=== PATIENT | female | born 1990 | race Caucasian/White ===

== ENCOUNTER → 2017-10-10 10:04 | Outpatient (CLI) | payer MEDICAID, SELFPAY ==
[2017-10-10 13:07] LABS: Absolute Neutrophil Count 6.3 X10^3/uL (2.0-7.7); Basophil# 0.04 X10^3/uL; Basophil% 0.4 % (0-1); Eosinophil# 0.31 X10^3/uL; Eosinophils% 3.4 % (0-5); Hematocrit 39.5 % (37-47); Hemoglobin 13.1 g/dl (12.0-15.0); Lymphocyte % 20.8 % (19-41); Mean Corp Hgb Conc 33.2 g/gl (32-36); Mean Corpuscular Hgb 30.9 pg (27.0-32.0); Mean Corpuscular Volume 93.2 fL (81-99); Mean Platelet Vol. 10.9 fl (6.2-12.0); Monocyte# 0.54 X10^3/uL; Monocyte% 5.9 % (0-10); Neutrophil # 6.32 X10^3/uL (2.7-7.7); Neutrophil % 69.3 % (47-70); Platelet Count 278 K/mm3 (150-450); RBC Distribution Width CV 13.8 % (11.6-14.6); Red Blood Count 4.24 M/mm3 (4.2-5.4); White Blood Count 9.1 K/mm3 (4.4-11.0)
[2017-10-10 13:11] LABS: POSITIVE COUNT NO; POSITIVE DIFFERENTIAL NO; POSITIVE MORPHOLOGY NO
[2017-10-10 13:37] LABS: Rubella IgG 145.2 IU/mL
[2017-10-11 04:08] LABS: HIV 1/0/2 SCREEN 4TH GEN Non Reactive (Non Reactive)
[2017-10-11 12:45] LABS: HEPATITIS B SURFACE AG Negative (Negative)
[2017-10-12 03:11] LABS: Rapid Plasmin Reagin (RPR) NONREACTIVE (NONREACTIVE)
== END ==
PROVIDERS: Visit Provider Obstetrics & Gynecology
DX: O09.92 Supervision of high risk pregnancy, unspecified, second trimester (principal); Z3A.00 Weeks of gestation of pregnancy not specified
CPT/HCPCS: 85025; 86592; 86703; 86762; 86850; 86900; 87340

== ENCOUNTER → 2017-10-10 10:26 | Outpatient (CLI) | payer MEDICAID, SELFPAY ==
--- NOTE | 2017-10-10 10:28 | US_ITS ---
STUDY: SECOND AND THIRD TRIMESTER OBSTETRICAL ULTRASOUND - LIMITED REASON FOR EXAM: Female, 27 years old. Routine survey. LMP: January 13, 2017. PRIOR ULTRASOUND: None. TECHNIQUE: Transabdominal and transvaginal ultrasound evaluation was performed. FINDINGS: There is a single intrauterine fetus. The fetus is in a cephalic presentation. There is demonstrated cardiac activity with a heart rate of 149 bpm. There is a normal amniotic fluid volume. The largest amniotic fluid pocket measures 2.3 cm x 2.3 cm. The amniotic fluid index (CELIA) is 6.7 cm. The placenta is fundal in location. There are Grade 3 placental changes. The cervix measures 2.5 cm in length. BIOMETRY: BPD: 8.6 cm: 34 weeks, 5 days HC: 32.0 cm: 36 weeks, 1 days AC: 30.2 cm: 34 weeks, 2 days FL: 6.7 cm: 34 weeks, 4 days Age by LMP: 38 weeks, 4 days. KOKO by LMP: October 20, 2017. age by current US: 35 weeks, 0 days. KOKO by current US: November 14, 2017. Estimated weight: 2454 grams, +/- 358 grams, 2 percentile. Gender: Indeterminant US/OB Limited With Biometrics IMPRESSION: Single live intrauterine gestation with a mean gestational age of 35 weeks. Electronically Signed: Frederic Ray MD at 11:37 EDT Tel [phone], Service support ,
== END ==
PROVIDERS: Visit Provider Obstetrics & Gynecology
DX: O09.93 Supervision of high risk pregnancy, unspecified, third trimester (principal); O09.33 Supervision of pregnancy with insufficient antenatal care, third trimester; Z3A.35 35 weeks gestation of pregnancy
CPT/HCPCS: 76816

== ENCOUNTER 2017-10-10 12:05 | Inpatient (IN) | payer MEDICAID, SELFPAY ==
[2017-10-10] VITALS (11 sets, daily range): BP systolic 74–100; BP diastolic 34–67; PULSE 65–110; RESP 16–20; TEMP 35.8–36.8; O2SAT 96–100; BMI 21.0
--- NOTE | 2017-10-10 12:27 | NURSING ---
pt had very limited care
[2017-10-10] MEDS: Lactated Ringers 1,000 ML 50 ML IV ×2 (12:30→17:36)
[2017-10-10 12:45] LABS: Hematocrit 40.5 % (37-47); Hemoglobin 13.7 g/dl (12.0-15.0); Mean Corp Hgb Conc 33.8 g/gl (32-36); Mean Corpuscular Hgb 31.1 pg (27.0-32.0); Mean Corpuscular Volume 91.8 fL (81-99); Mean Platelet Vol. 10.6 fl (6.2-12.0); Platelet Count 271 K/mm3 (150-450); RBC Distribution Width CV 13.7 % (11.6-14.6); RBC Distribution Width SD 45.1 fl (35.1-43.9); Red Blood Count 4.41 M/mm3 (4.2-5.4); White Blood Count 10.5 K/mm3 (4.4-11.0)
[2017-10-10 12:51] LABS: Scan Indicated on CBC? Y/N NO
[2017-10-10] MEDS: fentaNYL-bupivacaine (epidural) 100 ML BAG EPIDURAL ×2 (13:44→18:04)
[2017-10-10] MEDS: Oxytocin 30 units/NS 500 ml 30 UNITS/500 ML IV.SOLN IV (17:37)
[2017-10-10] MEDS: Amnioinfusion- 0.9% NS 1,000 ML IV.SOLN. INTRA-UTER (19:00)
[2017-10-10] MEDS: Terbutaline 1 MG/ML Vial 0.25 MG SC (19:27)
[2017-10-10] MEDS: Oxytocin 30 units/NS 500 ml 30 UNITS/500 ML IV.SOLN 167 UNITS IV (19:37)
[2017-10-10] MEDS: Lactated Ringers 1,000 ML 100 ML IV (20:00)
--- NOTE | 2017-10-10 20:00 | PLAC_PTH ---
PATIENT: DIONICIO COON ELIOT LOC: WP U#:[id number] AGE/SX: 27/F ROOM: WP010 RE10/10/[address]: Kosta Anne MD : 1990 BED: 1 DIS: 10/14/2017 SPEC #: [id number] RECD: 10/11/17 00:22 STATUS: AUDREY GOLDY #: [id number] ELIZABETH: 10/10/17 20:[address]: Shanell Gagnon DEPT: SURGICAL PATHOLOGY RECD BY: Poncho Frye ENTERED: 10/11/17 08:14 SP TYPE: PLACENTA OTHR DR: No Primary Care Phys Tissues: Placenta, NOS Procedures: Surgery Specimen Level V HEADER OPERATION: Primary section PRE-OP DIAGNOSIS: IUGR TISSUE SUBMITTED: Placenta MICROSCOPIC DIAGNOSIS Placenta: Placental disc - third trimester placenta (287 gm). - Focal area of infarction (1.5 cm in greatest dimension). - Focal area of increased calcification. - Focal chronic villitis of unknown etiology. Membranes - no pathologic diagnosis. See comment. Umbilical cord - three blood vessels and no pathologic diagnosis. SJ:rafiq 10/12/17 COMMENT Focal mild acute deciduitis is noted, significance is not clear. MICROSCOPIC DESCRIPTION Slides are reviewed. GROSS DESCRIPTION SPECIMEN: PLACENTA / CLINICAL INFORMATION: A. Weight: 2.192 kg B. Gestational Age: 38 weeks C. Sex: Male PLACENTAL WEIGHT (POST FIXATION): 287 gm PLACENTAL DIMENSIONS: 15 x 13 x 2.5 cm PLACENTAL SHAPE: Usual ovoid PLACENTAL WEIGHT FOR GESTATIONAL AGE: <10 percentile MEMBRANES - Present A. Insertion: The membranes are inserted 1 cm away from the margin of the placenta suspicious for circumvallate insertion in half the circumference of the placenta. B. Site of rupture from edge: 7 cm from edge of placental disc C. Color of membrane: Pang, mucoidy D. Abnormalities: None UMBILICAL CORD - Present A. Color: Pang-burton B. Insertion: Central C. Length: 22 cm D. Diameter: 0.6 to 1 cm E. Number of vessels: Three F. Abnormalities: A false is also noted. PLACENTAL DISC - Present A. Color of surface: Pang-burton B. surface abnormalities: None C. Maternal cotyledons: Intact with minimal tears D. Attached retro placental clot: No clot E. Cut surface: Dark red and spongy F. Lesions: Sections reveal a pang-white wedge-shaped lesion measuring 1.5 cm in greatest dimension. G. Separate clot: Absent SECTIONS SUBMITTED: 1. Membrane roll 2. Cord, maternal end, insertion of membrane away from margin 3. Cord, end, insertion of membrane away from margin 4. Placental disc, and maternal surfaces, lesion 5. Placental disc, and maternal surfaces 6. Placental disc, and maternal surfaces MELISSA:rafiq 10/11/17 TC:5 CPT: 98733
--- NOTE | 2017-10-10 20:24 | HP.PCM_ITS ---
- Problem List (1) IUGR (intrauterine growth restriction) Status: Acute (2) Late care Status: Acute (3) Encounter for supervision of high risk in third trimester, antepartum Status: Acute Comment: Grav 6/5 KOKO 10/20/17. Spouse: Mio. PC: Roni Yolanda Hurley, History Date of Admission: 10/10/17 Final KOKO: 10/20/17 Gestational age: 38 Weeks and 4 Days History of this : 27 yo @ 38w4d by LMP consistent with 17 week US presents IAL with severe IUGR. She presents for her second appointment today with her previous being at 17w6d and presented with regular ctx and us done showed severe IUGR at the 2nd percentile with an hope of 6.7 cm. She started having some vaginal bleeding but no lof. she admits to marijuana use. she states she hasn't received care due to lack of transportation and lack of childcare. Pertinent Past Medical History: negative PSH: tonsillectomy 3 previous term deliveries uncomplicated last delivery 1 1/2 years ago Allergies No Known Allergies Allergy (Verified 10/10/17 09:41) Current Medications Acetaminophen (Tylenol) 325 - 650 mg PO Q4H PRN PRN PRN Reason: PAIN OR FEVER >100.4F Al Hydroxide/Mg Hydroxide (Mylanta Ii) 15 - 30 ml PO Q4H PRN PRN PRN Reason: INDIGESTION Citric Acid/Sodium Citrate (Bicitra) 30 ml PO UD PRN Naloxone HCl 4 mg/ Dextrose 504 mls @ 0 mls/hr IV PRN PRN; Protocol PRN Reason: TO MAINTAIN RR>10 Lactated Ringer's () 1,000 mls @ 50 mls/hr IV .Q20H JENNY Last Admin: 10/10/17 17:36 Dose: 50 mls/hr Oxytocin/Sodium Chloride () 30 units in 500 mls @ 1 mls/hr IV .Q500H JENNY Last Admin: 10/10/17 17:37 Dose: 1 mls/hr Misoprostol (Cytotec) 25 mcg VAGINAL Q4H JENNY Stop: 10/11/17 09:01 Last Admin: 10/10/17 17:17 Dose: Not Given Nalbuphine HCl (Nubain) 5 mg IV Q3H PRN PRN Reason: ITCHING Stop: 10/11/17 14:54 Nalbuphine HCl (Nubain) 5 - 10 mg IV Q3H PRN PRN PRN Reason: PAIN (4-10/10) Naloxone HCl (Narcan) 0.2 mg IV Q1M PRN PRN Reason: RR<10 AND PT UNRESPONSIVE Stop: 10/11/17 14:54 Ondansetron HCl (Zofran) 4 mg IV Q8H PRN PRN PRN Reason: NAUSEA Promethazine HCl (Phenergan Iv) 6.25 - 12.5 mg IV Q4H PRN PRN; Protocol PRN Reason: IF NAUSEA PERSISTS Sodium Chloride () 5 - 15 ml IV UD JENNY Last Admin: 10/10/17 16:03 Dose: Not Given Alcohol: None Drug Use: marijuana Number of Fetus(es): 1 - 130 moderate variability reactive no decels Review of Systems Constitutional: Denies: Chills, Fever, Weight Change HEENT: Reports: Sinus Congestion, Sinus Drainage. Denies: Head Aches Cardiovascular: Denies: Chest Pain, Palpitations Respiratory: Reports: Cough, Sputum production Gastrointestinal: Reports: Abdominal Pain, Nausea Genitourinary: Denies: Dysuria Gynecological: Reports: Vaginal bleeding. Denies: Vaginal discharge Skin: Reports: Dryness Psychiatric: Denies: Anxiety, Depression Physical Exam General: Alert, Oriented x3, No apparent distress Cardiovascular: Regular rate Lungs: Normal air movement Abdomen: Soft, Non Tender, Gravid Extremities:: No edema Estimated gestational size: Small for gestational age Presentation: Cephalic Cervix Dilation (cm): 4 Station: -1 Effacement (%): 50 Assessment/Plan Active and Suspected Problems (Last Reviewed 10/10/17 @ 09:42 by Carlene Duff) IUGR (intrauterine growth restriction) (Acute) 27 yo @ 38w4d presents IAL with severe IUGR and limited care 1. stat new ob labs ordered due to patient never had drawn and was noncompliant with care. 2. severe IUGR- plan pit augmentation PRN in labor 3. epidural 4. urine tox positive marijuana 5. rapid gbs negative 6. social worker assistant consult
[2017-10-10] MEDS: Cefazolin 2 GM in 0.9% Normal Saline 100 ML IV (20:32)
--- NOTE | 2017-10-10 20:57 | PCM.OPRPT ---
Problem List (1) IUGR (intrauterine growth restriction) Status: Acute (2) Late care Status: Acute (3) Encounter for supervision of high risk in third trimester, antepartum Status: Acute Comment: Grav 4/3 KOKO 10/20/17. Spouse: Mio. PC: Xavi Tamayo Dysen, (4) heart rate decelerations affecting management of mother Status: Acute Report of Operation Date of Procedure: 10/10/17 Pre-Operative Diagnosis: ial iugr with category II tracing with decels remote from delivery Post-Operative Diagnosis: same Surgery/Procedure Performed:: primary low transverse section supervisor microfilm duplicating unit: Germaine Kamara supervisor microfilm duplicating unit: Yokasta Serna Type of Anesthesia:: Epidural Special Medications: aniyah, pitocin Specimen's removed: male vertex presentation apgars 9 and 9 Drains: gillis Estimated Blood Loss (mL): 600 Fluids Replaced: crystalloid Description of Procedure: patient presented IAL with limited care and severe IUGR at the 2nd percentile. she made it to 5-6 cm and developed severe recurrent variables with a category 2 tracing and the decision was made for immediate since she was remote from delivery and the tracing that intermittently persisted for over 40 minutes despite intrauterine resuscitation. The patient was placed in the dorsal supine position with leftward tilt. Patient was prepped and draped in the normal sterile fashion. Pfannenstiel skin incision was made with the scalpel and carried through to the underlying layer of fascia with the scalpel. Fascia was nicked in the midline and the incision extended laterally. The peritoneum was entered digitally. The incision was stretched and a low transverse uterine incision was made with the scalpel. The 's head was delivered atraumatically followed by the anterior and posterior shoulders without complication the rest of the delivered. The cord was clamped and cut and the was handed off to awaiting nurse. The placenta was delivered spontaneously immediately following and was noted to be intact and have a three-vessel cord. The uterus was exteriorized cleared of all clots and debris, and a left cervical extension was noted. the incision was closed in a single layer closure using #1 Monocryl. it was tehn noted that the left lower portion of the incision had gone through and through the left side of the posterior uterus and superficially the stitch had caught the serosa of the small bowel. this suture was cut and the bowel inspected with no significant injury and nothing requiring repair. the incision was again reapproximated and tied down to the previous incision, and a modified o leary stitch was done on the left side and incorporated the left round ligament for stability. ureters was palpated to be inferolateral to the stitches without compromise. the uterus was taken off tension and monitored for hemostasis which was noted and aniyah was applied over the area and over the uterine incision anteriorly. The uterus was returned to the maternal abdomen and gutters were cleared of all clots and debris. The ovaries and fallopian tubes were noted to be within normal limits. The peritoneum was closed with 3-0 Monocryl in a running fashion. Fascia was closed with 0 PDS in a running fashion. Subcutaneous tissue was copiously irrigated and the skin was closed with 3-0 Monocryl in a subcuticular fashion. Steri-Strips and Mepilex dressing were applied without complication. Patient was taken to recovery in stable condition. Grafts/Implants Used: gillis - Complications none
[2017-10-10] MEDS: Albuterol 2.5 MG/3 ML VIAL.NEB. INHALATION (21:44)
[2017-10-10] MEDS: oxyCODONE 5 MG Tablet PO (22:36)
[2017-10-11] VITALS (14 sets, daily range): BP systolic 83–104; BP diastolic 33–59; PULSE 57–96; RESP 14–19; TEMP 36.2–37; O2SAT 92–100
--- NOTE | 2017-10-11 01:13 | NURSING ---
epidural catheter removed, blue tip intact
[2017-10-11] MEDS: Lactated Ringers 1,000 ML 150 ML IV ×2 (02:28→06:46)
--- NOTE | 2017-10-11 03:09 | DCINST_ITS ---
Discharge Diet: No Restrictions Discharge Activity: May Not Drive - for 2 weeks, May not drive while taking narcotic pain medications., May Shower, May Take a Tub Bath - in 7 days May resume sexual activity in: 4-6 weeks Lifting Restrictions: 20 pounds Additional Activity Instructions:: Nothing in the vagina for 4-6 weeks. You may return to work/school in 6 weeks. Call your doctor if your incision/area has: Continuous Slow Oozing, Sudden Increased Bleeding, Increased Pain/ Swelling, Increased Redness, Foul Smelling Discharge Call your doctor if you observe: Fever of 101 or Higher, Using more than one pad per hour - for 2 hours Suture Line Care: Avoid Pulling/Pushing, Avoid Pinching/Bending Cleanse incision/area with: Keep Dressing Clean & Dry Additional Instructions: If you experience any of the following, contact your healthcare provider. * Bleeding that soaks a pad every hour for 2 hours * Fever 100.4 or higher * Unrelieved incision or abdominal pain * Swelling, redness, discharge or bleeding from your incision or episiotomy site * Your incision begins to separate * Problems urinating (including inability to urinate or burning while urinating) . * Visual changes * Severe headache * Flu-like symptoms * Pain or redness in one of both of your breasts * Pain, warmth, tenderness or swelling in your legs, especially the calf area * Frequent nausea and vomiting * Symptoms of depression or anxiety If you experience any of the following, call 911 or go to the nearest Emergency Room. * Chest pain * Problems breathing * Seizure activity * Partial or complete paralysis of a body part, slurred speech, weakness or drooping of the face, or a sudden inability to walk or hold your balance Allergies/Adverse Reactions: Allergies No Known Allergies Allergy (Verified 10/10/17 09:41) Medications to take at Discharge Naproxen [Naprosyn] 250 - 500 mg PO Q8H PRN PRN #30 tab 10/11/17 Oxycodone HCl/Acetaminophen [Percocet 5-325] 2 tablet PO Q4H PRN PRN 7 Days #28 tablet 10/11/17 The following prescriptions were given: Oxycodone HCl/Acetaminophen [Percocet 5-325] 2 tablet PO Q4H PRN PRN 7 Days #28 tablet PRN Reason: Moderate-Severe pain Naproxen [Naprosyn] 250 - 500 mg PO Q8H PRN PRN #30 tab PRN Reason: MILD PAIN Follow-Up: Call to make an appointment with your doctor for an incision check in 1-2 weeks. You will also need a 6 week post- follow up appointment. Please Follow Up With: Shanell Gagnon MD - Call to make an appointment for an incision check in 1-2 [phone] When: You will need a post- check in 6 weeks. Primary Care Physician: Care Physician,No Primary [Primary Care Provider] -
[2017-10-11] MEDS: Ketorolac 30 MG/ML Syringe IV ×4 (03:39→23:10)
--- NOTE | 2017-10-11 05:01 | NURSING ---
pulse ox drops to 80's occ when pt asleep
--- NOTE | 2017-10-11 05:27 | NURSING ---
patients pulse ox upper 90's when awake. when falls asleep, she drops to 80's occasionally-mouth breather. remains on 2L NC. instructed patient that RN uncomfortable giving dilaudid when she is this sleepy and unable to maintain PO- pt agrees with plan. remains medicated with toradol
[2017-10-11 05:28] LABS: Hematocrit 26.5 % (37-47); Hemoglobin 8.9 g/dl (12.0-15.0); Mean Corp Hgb Conc 33.6 g/gl (32-36); Mean Corpuscular Hgb 31.3 pg (27.0-32.0); Mean Corpuscular Volume 93.3 fL (81-99); Mean Platelet Vol. 10.2 fl (6.2-12.0); Platelet Count 214 K/mm3 (150-450); RBC Distribution Width CV 13.5 % (11.6-14.6); RBC Distribution Width SD 44.6 fl (35.1-43.9); Red Blood Count 2.84 M/mm3 (4.2-5.4); White Blood Count 11.3 K/mm3 (4.4-11.0)
[2017-10-11 05:33] LABS: Scan Indicated on CBC? Y/N NO
[2017-10-11] MEDS: oxyCODONE 5 MG Tablet PO ×2 (05:34→15:10)
[2017-10-11 05:39] LABS: Anion Gap 8 (5-15); BUN 5 mg/dL (7-18); Calcium,Total 7.7 mg/dL (8.5-10.1); Chloride 106 mmol/L (98-107); Creatinine, Serum 0.38 mg/dL (0.55-1.02); EST Glomerular Filtration Rate 213 mL/min (>60); Est Glom Filt Rate - Afr Amer 257 mL/min (>60); Estimated Creatinine Clearance 192.03 ml/min; Glucose 98 mg/dL (74-106); Potassium 3.9 mmol/L (3.5-5.1); Sodium Level 138 mmol/L (136-145)
--- NOTE | 2017-10-11 08:27 | PCM.PN.OB ---
Patient Problems: Active and Suspected Problems (Last Reviewed 10/10/17 @ 09:42 by Carlene Duff) heart rate decelerations affecting management of mother (Acute) IUGR (intrauterine growth restriction) (Acute) Subjective: P CS for IUGR, decels. POD #1. Doing well. Abdomen soft, dressing dry and intact. Not out of bed yet. Pain well controlled. - Physical Exam General: Alert, Oriented x3 Abdomen: Soft, Non-Distended, Tender, - - Mild tender with palpation. Vital Signs Temp Pulse Resp BP Pulse Ox 97.8 F 57 L 16 87/39 L 98 10/11/17 08:09 10/11/17 08:09 10/11/17 08:09 10/11/17 08:09 10/11/17 08:09 Oxygen Flow Rate (L/min) 2 Oxygen Delivery Method Nasal Cannula Weight: 122 lb 9.232 oz Body Mass Index (BMI) 21.0 Intake and Output for Last 24 Hours 10/09/17 10/10/17 10/11/17 23:59 23:59 23:59 Intake Total 1042 / 1042 1727 / 1727 Output Total 100 / 100 575 / 575 Balance 942 / 942 1152 / 1152 Laboratory Tests Past 24 Hrs 10/10/17 10/10/17 10/11/17 12:30 12:30 05:15 WBC 10.5 11.3 H RBC 4.41 2.84 L Hgb 13.7 8.9 L Hct 40.5 26.5 L MCV 91.8 93.3 MCH 31.1 31.3 MCHC 33.8 33.6 RDW 13.7 13.5 RDW Differential 45.1 H 44.6 H Plt Count 271 214 MPV 10.6 10.2 Sodium Potassium Chloride Carbon Dioxide Anion Gap BUN Creatinine Estim Creat Clear Calc Est GFR (MDRD) Af Amer Est GFR (MDRD) Non-Af BUN/Creatinine Ratio Glucose Calcium Blood Type O POSITIVE Antibody Screen NEGATIVE 10/11/17 05:15 WBC RBC Hgb Hct MCV MCH MCHC RDW RDW Differential Plt Count MPV Sodium 138 Potassium 3.9 Chloride 106 Carbon Dioxide 24.0 Anion Gap 8 BUN 5 L Creatinine 0.38 L Estim Creat Clear Calc 192.03 Est GFR (MDRD) Af Amer 257 Est GFR (MDRD) Non-Af 213 BUN/Creatinine Ratio 13.0 Glucose 98 Calcium 7.7 L Blood Type Antibody Screen Medical Necessity - Tobacco Use Smoking Status: Current every day smoker Assessment/Plan Active and Suspected Problems (Last Reviewed 10/10/17 @ 09:42 by Carlene Duff) heart rate decelerations affecting management of mother (Acute) IUGR (intrauterine growth restriction) (Acute) S/P PCS. POD 1. . Rh positive. Ambulatory today. Routine care
[2017-10-11 12:29] LABS: Hemoglobin 8.9 g/dl (12.0-15.0)
--- NOTE | 2017-10-11 14:50 | CASEMGMT ---
Social Work Note - Labor and Delivery Unit Social Work Assessment completed. Refer to documentation below for further details. Date of Referral: 10/10/2017 Time of Referral: 1630 Referred By: verbal referral from nursing staff Reason for Referral: late to no care, baby sever IUGR Date of Intervention: 10/11/2017 Time of Intervention: 1450 History obtained from: mother of baby (MOB), father of baby (FOB), and medical record. note, this magazine writer familiar with MOB from previous delivery at [facility] Household composition: MOB, FOB, 3 children live in the upstairs of the home. FOBs mother lives in the basement. FOBs sister and sisters 2 year old child reportedly staying in the basement temporarily until the sister is able to get a job and get on feet financially. Patient's parent/guardian status: MOB Mikey Everett and FOB Mio Everett have been since 11-24-2016, but have been together since 2011. During private conversation with MOB, MOB denies any form of abuse in relationship with FOB. Minor children include: MOB and FOB together: , Cory Everett (born ), Yolanda Everett (born 2016), Xavi Everett (born 201) MOBs from prior relationship: Roni Upton (born 2009), FOBs from prior relationship: Fito, age 5 and Aniyah age 6, almost 7. In the home about 2 days a week at this point. Medical History: MBO is G4, P3 to 4 after delivering . MOB with a care visit at 17 weeks and then again on 10-10-17 when baby identified to have IUGR. Decision made to deliver baby. [place] born at 38.4 weeks gestation. Delivery ended up being a stat caesarian section. Apgars 9 and 9 at 1 and 5 minutes of life. weight 4 pounds 13 ounces. Educational Status: MOB reports completed through the 11th grade. Previously MOB denies any issues with learning, reading, or writing, but had also voiced that sometimes gets confused when reading. Today, MOB denying any issues with learning, reading, or writing. Financial Status: FOB works at [employer], manufacturing supervisor 2nd shift Sunday through . FOBs mother has social security, which contributes to the household. Infant Supplies: MOB reports to have needed baby supplies including bassinet, pack-n-play, car seat, clothing, diapers, wipes, and plans to breast feed. FOB reports intent to go and purchase smaller size diapers today. MOB reports able to get formula if needed down the road. Childcare/Caregiver(s): MOB plans to be the primary caregiver to infant, as is the primary caregiver to the older children in the home. Transportation: This is limited and appearing tenuous as evidenced by lack of care, due to parents voicing issues with transportation. FOB reports will be able to get license back in 3 weeks time. At this time family is dependent on FOBs father or MOBs mother. Programs/Agencies Involved: MOB involved with [facility] for food and medical. No current WIC or [facility]. Children Services/Legal Issues: MOB denies any current children services involvement related to concerns about FOB or MOB. There is a history of some involvement years ago related to school issues with MOBs oldest and also wanted to ensure that child was getting to services like needed to (PT and OT services). At last delivery, MOB reported that one of the children got out of the home, the police were called, and the thought was that children services would be out to the home at that time. MOB denies this occurred. FOB does report there is an active children services case for [place], related to the childrens mother. FOB reports the kids are in foster care, FOB gets the kids 2 days a week, and FOB reports the plan will be for FOB to obtain custody of the children. Behavioral Health Issues: Mental Health: MOB denies any history of depression, anxiety, other mental health issues, or suicidal ideation. Denies any medication or counseling for treatment of mental health. MOB denies any mental health issues. Substance Use: MOB reports use of marijuana throughout this . MOB admits to daily use at the beginning and as the went on usage reportedly became less frequent. It is reported that last use was 2 days prior to delivery. MOB reports use was due to nausea and vomiting, and that marijuana helped MOB to have an appetite and to be able to keep food down. caseworker protective services explored whether use was in front of kids. MOB denies reporting that would use marijuana when the kids were sleeping, or MOB would go to the basement or outside to smoke the marijuana. MOB denies any other drug use including heroin, cocaine, meth, or other narcotic type medicines. MOB denies alcohol use. MOB reports smoke about a half a pack of cigarettes a day. MOB has a toxicology screen pending. Babys urine tox screen is negative and meconium is pending. Family/Social Stressors: MOB with late and limited are, essentially no care. This was an issue during a prior delivery. MOB reports did not go to appointments due to lack of transportation. MOB reports does not like to get into cars with strangers. MOB reports worries about everything regarding riding with a stranger, such as the person taking MOB to the wrong place, or doing harm to MOB, or even getting into a crash. MOB reports riding with strangers is not an option and not something MOB is not willing to reconsider at this point. MOB denies any form of mental health issues, but worry about riding with strangers is preventing MOB from accessing services for self and children, having to rely on family when family is able to assist. Addressed with MOB spots on skin, which was an issue the last delivery as well. MOB reports had bites/diana all over body after sleeping in a chair a few weeks ago. MOB reports not sure what this is all about, as MOB is the only person this happens to in the family and other people use this same chair. FOB does voice that finances can be tight at times, that family has been making finances work but it can be stressful. FOB reports applying for PIP to get help with electric bill as family is behind in this right now. No shut off notice. Family is working with children services to get custody of FOBs other children, which would take the kids from 4 to 6 in the home. FOB expressing interested in WIC, but MOB voiced that will not ride with strangers and people are busy so cant always rely on others for help. Support Systems: MOB reports her mother, and then FOB are two biggest supports. FOBs sister will be helping MOB when MOB goes home and FOB has to go back to work. ASSESSMENT: MOB and FOB cooperative with nephrology social worker. When FOB present, FOB did speak up and was more spontaneous in conversation than compared to MOB. MOB answered some questions, but appearing guarded as evidenced by short answered and avoidant eye contact at times. MOB not receptive to looking into WIC due to transportation issues, nor receptive to looking at community supports for this matter, even for baby appointments. FOB voiced that would let FOBs father know of need for baby follow up to ensure that family has help for Babys aftercare appointments. During private conversation with MOB, this magazine writer addressed domestic violence, mental health and substance issues. MOB denies any domestic violence or mental health issues. MOB admits to marijuana usage, denies other usage. MOB matter of fact in responses about marijuana usage. MOB reports intent to cease usage of marijuana as dont want my kids taken away. MOB no interested in any outside referrals at this time, such as to Help Me Grow, WIC, or counseling. MOB reports to have needed supplies and will have help from family at home going. Educated MOB that due to history and also due to continued use of marijuana in there is a possibility that children services may want to follow with this family to ensure needs are being met. During assessment MOB reported to be in pain, shifting in pain, groaning at times. MOB was attentive however when baby stirred, asked this magazine writer to help pick baby up. MOB held baby, was attentive, soothed baby and able to get baby to stop crying. MOB talked to baby gently, asking baby if baby in pain as MOB is in pain. MOB identifies that this experience, the caesarian section is much different than compared to vaginal deliveries and MOB does not like it. MOB eye contact avoidant at times. Affect constricted, though MOB reporting pain from caesarian section. Mood reported to be happy, as well as MOB reporting to love the baby and to feel a rios with baby already. MOB reports awareness of shaken baby and safety sleeping, and able to give appropriate responses to both. Talked with MOB about depression, risk factors for such. PLAN: Social work to follow and assist family during hospital stay. Will be calling [facility] based on past history with said agency, lack of care, and maternal drug use during . Will be following with family to provide resources on 10-12-17. -RADHA Fong, [employer]
[2017-10-11] MEDS: Senna/Docusate Sodium 1 Tablet PO (15:10)
[2017-10-11] MEDS: 0.9% Saline Lock 10 ML Syringe IV ×2 (16:14→23:10)
[2017-10-11] MEDS: Albuterol 2.5 MG/3 ML VIAL.NEB. INHALATION ×2 (16:18→22:37)
--- NOTE | 2017-10-11 23:00 | RAD_ITS ---
XR Chest 1 View INDICATION: HYPOXIA, RECENT COMPARISON: None FINDINGS: Heart size and pulmonary vascularity are within normal limits. The lungs are clear without evidence of airspace consolidation or pleural effusion. The osseous structures are grossly unremarkable. RAD/Chest 1 View (Portable) IMPRESSION: No radiographic evidence of acute intrathoracic disease. at 2330 Reported and signed by: Radhika Crawford MD Electronically Signed: Radhika Crawford MD at 22:28 EDT Tel , Service support ,
[2017-10-12] VITALS (15 sets, daily range): BP systolic 89–107; BP diastolic 47–58; PULSE 87–130; RESP 17–26; TEMP 36.6–38.2; O2SAT 88–95
--- NOTE | 2017-10-12 00:15 | NURSING ---
10/11/172219- Assisted patient up out of bed to go to bathroom. Patient moving slow which is to be expected due to surgery. Completed pericare in bathroom and assisted patient back to bed. Audible wheezing and patient stated she is SOB. Patient continues to try to cough. Respiratory called to come to room and give patient a breathing treatment. Patient placed on pulse ox and O2 saturation was 87% on room air. Placed patient on nasal cannula of 4L O2 and patient brought saturation up to 90%. Notified Dr. Gagnon of SOB and current situation. Orders received for STAT chest x-ray.
[2017-10-12] MEDS: Azithromycin 250 MG Tablet 500 MG PO (00:31)
--- NOTE | 2017-10-12 01:11 | NURSING ---
10/11/17 2330 Patient's pulse ox was 95% on 2 liters of O2. O2 decreased to 1 liter at this time
--- NOTE | 2017-10-12 02:33 | NURSING ---
0200- Patient called out and stated needing help to walk to bathroom. Patient continues to wheeze upon exertion. Assisted back to bed and placed on pulse ox which read 88% on 2 liters of O2. Increased O2 to 4 liters in order for patient to be at 92%
[2017-10-12] MEDS: Albuterol 2.5 MG/3 ML VIAL.NEB. INHALATION ×4 (03:52→19:17)
--- NOTE | 2017-10-12 04:11 | NURSING ---
0345- Patient continues to have difficulty taking deep breaths. Educated patient on splinting with pillow when coughing. Productive cough but difficult to bring up. RT called to room for breathing treatment.
--- NOTE | 2017-10-12 05:23 | NURSING ---
0500- Patient pulse ox reading 95% on 1 liter of O2. Patient continues to moan in pain with movement. Continue to ask patient if she would like pain medication and patient continues to refuse medications stating they don't work. Will continue to monitor.
[2017-10-12] MEDS: 0.9% Saline Lock 10 ML Syringe IV ×3 (06:16→22:00)
[2017-10-12] MEDS: Ketorolac 30 MG/ML Syringe IV ×2 (06:16→22:00)
[2017-10-12] MEDS: Senna/Docusate Sodium 1 Tablet PO (09:49)
[2017-10-12] MEDS: Azithromycin 250 MG Tablet PO (09:50)
--- NOTE | 2017-10-12 15:03 | CASEMGMT ---
Social Work - Labor and Delivery unit Chart reviewed. Called [facility] ([facility]) and spoke with Brie in the intake department, . Referral due to: Concern due to lack of care. MOBs resistance to accessing services to get to appointments for self or others. Marijuana use in , up to two days prior to delivery. Negative urine tox screen on baby and pending meconium. FOBs interest in having information on resources and MOB's resistance to accepting resources due to transportation issues, how this will correlate to getting baby to follow up appointments. Father of baby (FOB) did previously tell this sign writer letterer or painter that would talk to own father about helping with getting to post discharge appointments. Family history of children services involvement. Met with patient in room. MOB lying in bed in dark. Baby in nursery for circumcision. MOB reports to be feeling chilled and to have a cough, but otherwise to be feeling okay. This sign writer letterer or painter provided MOB with list of agencies providing various social service supports, as well as information on Help Me Grow, Moms group, WIC, [employer] [facility], and a packet about depression. Verbally reviewed with MOB. MOB denies any other needs at this time per social work. Acknowledged with MOB, the MOBs resistance in allowing strangers to help with transportation, but that this sign writer letterer or painter providing resources just in case MOB changes mind. SW attempted to explore MOBs fear of riding with strangers, but MOB reports the worry has always been there, denies any past trauma or experience impacting willingness to ride in car with strangers. Plan: MOB and to home when ready for discharge. [facility] has been notified and aware of likely discharge over the weekend. Will monitor for meconium drug screen results and notify children services as indicated. -RADHA Fong, JULIUS
--- NOTE | 2017-10-12 15:50 | CT_ITS ---
STUDY: CTA CHEST REASON FOR EXAM: Female, 27 years old. Shortness of breath. Cough. Tachycardia. Chest discomfort. RADIATION DOSAGE (If Supplied By Facility): CTDIvol = ( 5.82 ) mGy, DLP = ( 185.43 ) mGycm TECHNIQUE: The examination was performed with the intravenous administration of 75 ml of Isovue 370 contrast material. Post-processing of the angiographic images was performed, with multiplanar reformation and 3D reconstruction. Individualized dose optimization techniques were used for this CT. COMPARISON: Chest, October 11, 2017. FINDINGS: Normal enhancement of the main pulmonary artery and right and left pulmonary arteries. Normal enhancement of the bilateral peripheral pulmonary arteries. There is no demonstrated pulmonary embolism. Normal thoracic aorta and visualized great vessels. There is no demonstrated aortic dissection. Normal heart and pericardium. There are visualized mediastinal lymph nodes, which are within normal size limits, and with normal morphology. Normal hilar regions. Normal visualized trachea and bronchi. The lungs are well expanded. There is complete collapse of the right lower lobe. Air bronchograms are noted. The right upper and middle lobe are well aerated and free of infiltrate or mass.. A minimal patchy infiltrate in the lingula. The upper lobe is otherwise unremarkable. Diffuse infiltrate versus atelectasis in the inferior aspect of the left lower lobe. Normal chest wall structures. Normal osseous structures. There is minimal free air seen immediately right diaphragm. Free air is also seen in the portal hilum along the underside of the left lobe of the liver. CT/CTA Chest W/WO Contrast IMPRESSION: 1. No evidence of pulmonary embolus. 2. No aortic dissection or aneurysm. 3. Pneumoperitoneum of unknown etiology. 4. Complete collapse of the right lower lobe. 5. There is atelectasis versus infiltrate with partial collapse of left lower lobe. 6. Patchy infiltrate in the lingula. N.B. : The above information has been verbally conveyed by Tavo Lunsford DO to Mary Mcarthur RN, Hospital- In-Patient RN, on 10/12/2017 16:54:51 (ET). Electronically Signed: Tavo Lunsford DO at 16:49 EDT Tel [phone], Service support , N.B. : The above information has been verbally conveyed by Tavo Lunsford DO to Mary Mcarthur RN, Hospital- In-Patient RN, on 10/12/2017 16:54:51 (ET).
--- NOTE | 2017-10-12 15:51 | PCM.PN.OB ---
Patient Problems: Active and Suspected Problems (Last Reviewed 10/10/17 @ 09:42 by Carlene Duff) heart rate decelerations affecting management of mother (Acute) IUGR (intrauterine growth restriction) (Acute) Subjective: patient improving- has had difficult breathing and co cough URI symptoms, improving this morning. patient was seen by this physician at 12:30 and had an improvememt in SOB and chest discomfort over the past few days, no fevers at that time. pain controlled. now the nurse called and patient is having fever and tachycardia. - Physical Exam General: Oriented x3 Abdomen: Soft Vital Signs Temp Pulse Resp BP Pulse Ox 97.9 F 118 H 20 H 89/57 L 92 10/12/17 08:00 10/12/17 13:35 10/12/17 13:35 10/12/17 08:00 10/12/17 10:15 Oxygen Flow Rate (L/min) 2 Oxygen Delivery Method Nasal Cannula Weight: 122 lb 9.232 oz Body Mass Index (BMI) 21.0 Intake and Output for Last 24 Hours 10/10/17 10/11/17 10/12/17 23:59 23:59 23:59 Intake Total 1042 / 1042 3389 / 3389 Output Total 100 / 100 3775 / 3775 450 / 450 Balance 942 / 942 -386 / -386 -450 / -450 Medical Necessity - Tobacco Use Smoking Status: Current every day smoker Assessment/Plan Active and Suspected Problems (Last Reviewed 10/10/17 @ 09:42 by Carlene Duff) heart rate decelerations affecting management of mother (Acute) IUGR (intrauterine growth restriction) (Acute) s/p LTCS secodnary to decels viral URI- negative cxr, now febrile recommend ct of the chest stat and discussed with casting machine operator helper- recommend consult. post c section routine care
--- NOTE | 2017-10-12 15:55 | PN.OBGYN_ITS ---
Patient Problems: Active and Suspected Problems (Last Reviewed 10/10/17 @ 09:42 by Carlene Duff) heart rate decelerations affecting management of mother (Acute) IUGR (intrauterine growth restriction) (Acute) Subjective: patient improving- has had difficult breathing and co cough URI symptoms, improving this morning. patient was seen by this physician at 12:30 and had an improvememt in SOB and chest discomfort over the past few days, no fevers at that time. pain controlled. now the nurse called and patient is having fever and tachycardia. - Physical Exam General: Oriented x3 Abdomen: Soft Vital Signs Temp Pulse Resp BP Pulse Ox 97.9 F 118 H 20 H 89/57 L 92 10/12/17 08:00 10/12/17 13:35 10/12/17 13:35 10/12/17 08:00 10/12/17 10:15 Oxygen Flow Rate (L/min) 2 Oxygen Delivery Method Nasal Cannula Weight: 122 lb 9.232 oz Body Mass Index (BMI) 21.0 Intake and Output for Last 24 Hours 10/10/17 10/11/17 10/12/17 23:59 23:59 23:59 Intake Total 1042 / 1042 3389 / 3389 Output Total 100 / 100 3775 / 3775 450 / 450 Balance 942 / 942 -386 / -386 -450 / -450 Medical Necessity - Tobacco Use Smoking Status: Current every day smoker Assessment/Plan Active and Suspected Problems (Last Reviewed 10/10/17 @ 09:42 by Carlene Duff) heart rate decelerations affecting management of mother (Acute) IUGR (intrauterine growth restriction) (Acute) s/p LTCS secodnary to decels viral URI- negative cxr, now febrile recommend ct of the chest stat and discussed with roll cutter- recommend consult. post c section routine care
--- NOTE | 2017-10-12 16:07 | CON.PCM_ITS ---
Problem List (1) heart rate decelerations affecting management of mother Status: Acute (2) IUGR (intrauterine growth restriction) Status: Acute (3) Late care Status: Acute (4) Encounter for supervision of high risk in third trimester, antepartum Status: Acute Comment: Grav 4/3 KOKO 10/20/17. Spouse: Mio. PC: Xavi Tamayo Dysen, Reason for Consult Date of Consultation: 10/12/17 Reason for Consultation: Cough and wheeze History of Present Illness: The patient is a 27 year old F past medical history of bronchial asthma who underwent 2 days ago for intrauterine growth retardation. Patient now reports progressive cough and wheeze she has been placed on Zithromax and bronchodilator therapy with no improvement. She is noted to have sinus tachycardia and mild hypotension. Chest x-ray does not indicate pneumonia, CT scan of the chest has been ordered to up to rule out PE. Medicine is consulted for evaluation of her wheeze and cough. When I saw the patient she answered questions appropriately in full sentences, she does not appear to have use of her respiratory musculature. She denies any chest pain, purulent sputum production, fever or chills. Past Medical History Allergies No Known Allergies Allergy (Verified 10/10/17 09:41) Home Medications: Ambulatory Orders Medication Instructions Recorded Naproxen [Naprosyn] 250 - 500 mg PO Q8H PRN PRN #30 tab 10/11/17 Oxycodone HCl/Acetaminophen 2 tablet PO Q4H PRN PRN 7 Days #28 10/11/17 [Percocet 5-325] tablet Smoking Status: Current every day smoker Alcohol: None Review of Systems Comment: All Systems were reviewed with pertinent positives mentioned in the HPI above. Patient Problems: Active and Suspected Problems (Last Reviewed 10/10/17 @ 09:42 by Carlene Duff) heart rate decelerations affecting management of mother (Acute) IUGR (intrauterine growth restriction) (Acute) - Physical Exam General: Alert, Oriented x3 Neck: Supple Abdomen: Bowel Sounds Present, Non Tender Extremities: No edema Neurological: Cranial nerves II-XII grossly intact Vital Signs Temp Pulse Resp BP Pulse Ox 97.9 F 118 H 20 H 89/57 L 92 10/12/17 08:00 10/12/17 13:35 10/12/17 13:35 10/12/17 08:00 10/12/17 10:15 Oxygen Flow Rate (L/min) 2 Oxygen Delivery Method Nasal Cannula Weight: 55.6 kg Body Mass Index (BMI) 21.0 Intake and Output for Last 24 Hours 10/10/17 10/11/17 10/12/17 23:59 23:59 23:59 Intake Total 1042 / 1042 3389 / 3389 Output Total 100 / 100 3775 / 3775 450 / 450 Balance 942 / 942 -386 / -386 -450 / -450 Assessment/Plan Active and Suspected Problems (Last Reviewed 10/10/17 @ 09:42 by Carlene Duff) heart rate decelerations affecting management of mother (Acute) IUGR (intrauterine growth restriction) (Acute) 1. Acute asthmatic bronchitis; I would give this patient a dose of IV Solu- Medrol 40mg IV x1 now and continue on Prednisone 40 mg daily starting from tomorrow, also place her on Advair 1 puff twice daily. With current bronchodilator therapy and Zithromax. 2. sinus Tachycardia; likely due to bronchodilator therapy but I agree with CT angiogram of the chest to rule out pulmonary embolism, and also rule out pneumonia and other thoracic pathology. 3. Status post ; postoperative care by primary service. 4. Prophylactic therapy; DVT ppx, early ambulation. GI ppx with a PPI.
--- NOTE | 2017-10-12 17:24 | NURSING ---
1100 Attempted to take O2 off but pulse ox drops to 88%; coughing up large amts yellow tinged mucous. Has increased abdominal pain when coughing but refuses pain med. 1545 Dr. Leone notified of temp 100.7, pulse 126, still requiring O2. Hospitalist consulted. 1600 CT scan ordered and pt transferred to and from radiology via w/c. [address]5 Dr[address] Leone notified of CT results and hospitalist paged.
[2017-10-12] MEDS: oxyCODONE 5 MG Tablet PO (18:40)
[2017-10-12 18:42] LABS: Anion Gap 10 (5-15); BUN 5 mg/dL (7-18); BUN/Creat Ratio 10.9 RATIO (10-20); Chloride 102 mmol/L (98-107); Creatinine, Serum 0.46 mg/dL (0.55-1.02); EST Glomerular Filtration Rate 173 mL/min (>60); Est Glom Filt Rate - Afr Amer 209 mL/min (>60); Estimated Creatinine Clearance 158.63 ml/min; Glucose 96 mg/dL (74-106); Potassium 3.5 mmol/L (3.5-5.1); Sodium Level 138 mmol/L (136-145)
--- NOTE | 2017-10-12 20:48 | PCM.HOSP.N ---
Hospitalist Note Asked to reevaluate the patient due to chest pain. I saw the patient and she was in no acute distress, holding her baby. She was in respiratory distress with no conversational dyspnea. States that her chest pain is in front, on the right, radiating to her back. Reviewed CTA chest which showed RLL collapse/atelectasis. Pneumoperitoneum. I feel the patient's chest pain is musculoskeletal or even related to atelectasis. No additional work needed at this time unless becomes more severe or her condition deteriorates. Discussed w nursing, add Acapella valve, continue pulmonary toilet. On empiric zosyn. If cultures negative, then consider d/c abx (I doubt HCAP). Per nursing, Dr. Gagnon aware of pneumoperitoneum. CT mentioned of unknown etiology, but pt just had a Csxn. Also, pt denies and abdominal pain. Code Visit Procedures: Other Procedure - See Report - nonbilable rounding.
--- NOTE | 2017-10-12 20:54 | CCHN_ITS ---
Hospitalist Note Asked to reevaluate the patient due to chest pain. I saw the patient and she was in no acute distress, holding her baby. She was in respiratory distress with no conversational dyspnea. States that her chest pain is in front, on the right, radiating to her back. Reviewed CTA chest which showed RLL collapse/atelectasis. Pneumoperitoneum. I feel the patient's chest pain is musculoskeletal or even related to atelectasis. No additional work needed at this time unless becomes more severe or her condition deteriorates. Discussed w nursing, add Acapella valve, continue pulmonary toilet. On empiric zosyn. If cultures negative, then consider d/c abx (I doubt HCAP). Per nursing, Dr. Gagnon aware of pneumoperitoneum. CT mentioned of unknown etiology, but pt just had a Csxn. Also , pt denies and abdominal pain. Code Visit Procedures: Other Procedure - See Report - nonbilable rounding.
[2017-10-12] MEDS: 0.9% NaCl IVPB Med Flush (250 mL) 15 ML IV (22:00)
[2017-10-12] MEDS: Piperacil/Tazobactam 3.375 GM/50 ML ML IV (22:00)
[2017-10-13] VITALS (11 sets, daily range): BP systolic 90–104; BP diastolic 53–61; PULSE 89–110; RESP 16–20; TEMP 36.5–37.1; O2SAT 90–97
--- NOTE | 2017-10-13 00:31 | NURSING ---
pt was up to restroom and returned to bed. As RN entered room pt sitting up in bed with oxygen off. SP02 84-85% on room air. placed back on 2L02 via Nasal cannula, pt used incentive spirometer, sp02 remained 86-87%, oxygen increased to 3 L via nasal cannula. pt continues to use IS-sp02 87-88%, lungs with inspiratory wheezes heard t/o diminished to right lower lobe. o2 increased to 4L per nasal cannula, pt instructed to use pickle. sp02 92%. resp therapy called for breathing treatment, pt denies shortness of breath. will continue to monitor
[2017-10-13] MEDS: Albuterol 2.5 MG/3 ML VIAL.NEB. INHALATION ×4 (00:51→20:44)
--- NOTE | 2017-10-13 00:51 | NURSING ---
respiratory therapist on unit to give pt breathing treatment
--- NOTE | 2017-10-13 03:42 | NURSING ---
sp02 98% on 4L 02 via nasal cannula as pt sleeping. oxygen decreased to 3 L. pt denies pain, call light in reach
[2017-10-13] MEDS: Naproxen 250 MG Tablet PO (05:41)
[2017-10-13] MEDS: Piperacil/Tazobactam 3.375 GM/50 ML ML IV (05:42)
--- NOTE | 2017-10-13 08:00 | PN.OBGYN_ITS ---
Patient Problems: Active and Suspected Problems (Last Reviewed 10/10/17 @ 09:42 by Carlene Duff) heart rate decelerations affecting management of mother (Acute) IUGR (intrauterine growth restriction) (Acute) Subjective: patient feeling a little better, still having some chest pain and sob, using her IS and having breathing treatments. she feels like her pain is not well controlled with the oxy. she is ambulating and tolerating po - Physical Exam General: Alert, Oriented x3 HEENT: EOMI Lungs: Wheezes, - - bilateral air movememnt in all chow, reduced right lower Cardiovascular: Tachycardic Abdomen: Soft, Non Tender, Non-Distended Extremities: No edema Vital Signs Temp Pulse Resp BP Pulse Ox 97.7 F L 94 19 H 97/56 L 95 10/13/17 05:44 10/13/17 05:44 10/13/17 05:44 10/13/17 05:44 10/13/17 05:44 Oxygen Flow Rate (L/min) 3 Oxygen Delivery Method Nasal Cannula Weight: 122 lb 9.232 oz Body Mass Index (BMI) 21.0 Intake and Output for Last 24 Hours 10/11/17 10/12/17 10/13/17 23:59 23:59 23:59 Intake Total 3389 / 3389 Output Total 3775 / 3775 450 / 450 Balance -386 / -386 -450 / -450 Microbiology Past 72 Hours 10/13/17 00:25 Legionella Antigen - Final Urine, Clean Catch 10/13/17 00:25 Streptococcus pneumoniae Antigen (M - Final Urine, Clean Catch Streptococcus pneumonia Ag Laboratory Tests Past 24 Hrs 10/12/17 18:10 Sodium 138 Potassium 3.5 Chloride 102 Carbon Dioxide 26.0 Anion Gap 10 BUN 5 L Creatinine 0.46 L Estim Creat Clear Calc 158.63 Est GFR (MDRD) Af Amer 209 Est GFR (MDRD) Non-Af 173 BUN/Creatinine Ratio 10.9 Glucose 96 Calcium 9.0 Medical Necessity - Tobacco Use Smoking Status: Current every day smoker Assessment/Plan Active and Suspected Problems (Last Reviewed 10/10/17 @ 09:42 by Carlene Duff) heart rate decelerations affecting management of mother (Acute) IUGR (intrauterine growth restriction) (Acute) s/p LTCS secodnary to decels 1. pneumonia- appreciate hospitalist management, continue IV antibiotics and IS , albuterol 2. asthmatic bronchiitis- management per hospitalist 3. post routine postop care
--- NOTE | 2017-10-13 08:43 | CPS ---
Patient to do PEP therapy on own
[2017-10-13] MEDS: predniSONE 20 MG Tablet 40 MG PO (08:44)
[2017-10-13] MEDS: Senna/Docusate Sodium 1 Tablet PO (08:45)
--- NOTE | 2017-10-13 09:10 | PCM.PN.HOSP ---
Patient Problems: Active and Suspected Problems (Last Reviewed 10/10/17 @ 09:42 by Carlene Duff) heart rate decelerations affecting management of mother (Acute) IUGR (intrauterine growth restriction) (Acute) Subjective: CC: Cough, wheeze and SOB Objective: She is much improved but she still has significant wheezing. She had chest pain last nigh but this has resolved. Her urine is positive for pneumonia antigen. Vitals/I&O's: Vital Signs Temp Pulse Resp BP Pulse Ox 97.7 F L 105 H 16 97/56 L 90 10/13/17 05:44 10/13/17 08:10 10/13/17 08:10 10/13/17 05:44 10/13/17 08:10 Oxygen Flow Rate (L/min) 2 Oxygen Delivery Method Nasal Cannula Weight: 55.6 kg Body Mass Index (BMI) 21.0 Intake and Output for Last 24 Hours 10/11/17 10/12/17 10/13/17 23:59 23:59 23:59 Intake Total 3389 / 3389 Output Total 3775 / 3775 450 / 450 Balance -386 / -386 -450 / -450 General: Alert, Oriented x3 HEENT: Atraumatic Oral: Moist Mucosa Neck: Supple Lungs: Wheezes Cardiovascular: Regular rate, Regular Rhythm, Normal S1, Normal S2 Abdomen: Bowel Sounds Present, Soft, Non Tender Extremities: No edema Neurological: Cranial nerves II-XII grossly intact, Deep Tendon Reflexes 2+/4 and Symmetrical, Motor Exam 5/5 strength throughout Microbiology Past 72 Hours 10/13/17 00:25 Urine, Clean Catch Legionella Antigen - Final 10/13/17 00:25 Urine, Clean Catch Streptococcus pneumoniae Antigen (M - Final Streptococcus pneumonia Ag Laboratory Results 10/12/17 18:10: Sodium 138, Potassium 3.5, Chloride 102, Carbon Dioxide 26.0, Anion Gap 10, BUN 5 L, Creatinine 0.46 L, Estim Creat Clear Calc 158.63, Est GFR (MDRD) Af Amer 209, Est GFR (MDRD) Non-Af 173, BUN/Creatinine Ratio 10.9, Glucose 96, Calcium 9.0 Current Medications Acetaminophen (Tylenol) 1,000 mg PO Q8H PRN PRN PRN Reason: MILD PAIN (-09/29) Hydrocodone Bitart/Acetaminophen ([place] 5mg-325mg) 1 - 2 tablet PO Q4H PRN PRN PRN Reason: PAIN Albuterol Sulfate (Ventolin Aerosols) 2.5 mg INHALATION Q2H PRN PRN PRN Reason: wheezing/SOB Last Admin: 10/12/17 13:35 Dose: 2.5 mg Albuterol Sulfate (Ventolin Aerosols) 2.5 mg INHALATION Q6HWA.RT JENNY Last Admin: 10/13/17 08:10 Dose: 2.5 mg Azithromycin (Zithromax) 250 mg PO DAILY JENNY Stop: 10/16/17 10:01 Last Admin: 10/12/17 09:50 Dose: 250 mg Bisacodyl (Dulcolax) 10 mg RECTAL UD PRN PRN Reason: If no BM Hydrocortisone (Hytone) 1 applic TOPICAL TID PRN PRN; Protocol PRN Reason: Discomfort Hydromorphone HCl (Dilaudid Iv) 0.5 - 1 mg IV Q2H PRN PRN PRN Reason: MOD-SEVERE (PAIN SCALE 6-10) Sodium Chloride () 250 mls @ 15 mls/hr IV .[id number] PRN PRN Reason: SALINE FLUSH Last Admin: 10/12/17 22:00 Dose: 15 mls/hr Ceftriaxone Sodium (Rocephin) 1 gm in 50 mls @ 100 mls/hr IV Q24 [facility] Ketorolac Tromethamine (Toradol) 30 mg IV Q6H PRN PRN PRN Reason: PAIN Stop: 10/15/17 21:10 Last Admin: 10/12/17 22:00 Dose: 30 mg Methylergonovine Maleate (Methergine) 0.2 mg IM X1 PRN PRN Reason: Bleeding Naproxen (Naprosyn) 250 - 500 mg PO Q8H PRN PRN PRN Reason: Mild Pain (1-3/10) Last Admin: 10/13/17 05:41 Dose: 500 mg Nutritional Formula (Lactose Free) (Ensure Enlive) 120 ml PO 4X/DAY [facility] Ondansetron HCl (Zofran) 4 mg IV Q4H PRN PRN PRN Reason: Nausea Pantoprazole Sodium (Protonix) 40 mg PO DAILY [facility] Prednisone () 40 mg PO DAILY@0800 [facility] Last Admin: 10/13/17 08:44 Dose: 40 mg Promethazine HCl (Phenergan Iv) 12.5 mg IV Q4H PRN PRN PRN Reason: NAUSEA/VOMITING Senna/Docusate Sodium (Senokot-S, Elin-Colace) 1 - 2 tablet PO DAILY PRN PRN Reason: Constipation Last Admin: 10/13/17 08:45 Dose: 2 tablet Simethicone (Mylicon) 80 mg PO PCHS PRN PRN Reason: Indigestion/stomach pain Last Admin: 10/13/17 05:56 Dose: 80 mg Sodium Chloride () 5 - 15 ml IV UD PRN PRN Reason: SALINE FLUSH Last Admin: 10/12/17 22:00 Dose: 10 ml Medical Necessity - Tobacco Use Smoking Status: Current every day smoker Assessment/Plan Active and Suspected Problems (Last Reviewed 10/10/17 @ 09:42 by Carlene Duff) heart rate decelerations affecting management of mother (Acute) IUGR (intrauterine growth restriction) (Acute) 1. Pneumococcal Pneumonia; will change antibiotics to IV Rocephin. 2. Acute asthmatic bronchitis; we will continue on Prednisone 40 mg daily, Advair and bronchodilators as ordered. 3. sinus Tachycardia; likely due to bronchodilator therapy , CTA chest is negative for PE. 4. Status post ; postoperative care by primary service. 5. Bilateral Atelectasis; incentive spirometry recommended. 6. Pneumoperitoneum seen on CT scan is 2/2 #4. 7. Prophylactic therapy; DVT ppx, early ambulation. GI ppx with a PPI.
--- NOTE | 2017-10-13 09:13 | PN_ITS ---
Patient Problems: Active and Suspected Problems (Last Reviewed 10/10/17 @ 09:42 by Carlene Duff) heart rate decelerations affecting management of mother (Acute) IUGR (intrauterine growth restriction) (Acute) Subjective: CC: Cough, wheeze and SOB Objective: She is much improved but she still has significant wheezing. She had chest pain last nigh but this has resolved. Her urine is positive for pneumonia antigen. Vitals/I&O's: Vital Signs Temp Pulse Resp BP Pulse Ox 97.7 F L 105 H 16 97/56 L 90 10/13/17 05:44 10/13/17 08:10 10/13/17 08:10 10/13/17 05:44 10/13/17 08:10 Oxygen Flow Rate (L/min) 2 Oxygen Delivery Method Nasal Cannula Weight: 55.6 kg Body Mass Index (BMI) 21.0 Intake and Output for Last 24 Hours 10/11/17 10/12/17 10/13/17 23:59 23:59 23:59 Intake Total 3389 / 3389 Output Total 3775 / 3775 450 / 450 Balance -386 / -386 -450 / -450 General: Alert, Oriented x3 HEENT: Atraumatic Oral: Moist Mucosa Neck: Supple Lungs: Wheezes Cardiovascular: Regular rate, Regular Rhythm, Normal S1, Normal S2 Abdomen: Bowel Sounds Present, Soft, Non Tender Extremities: No edema Neurological: Cranial nerves II-XII grossly intact, Deep Tendon Reflexes 2+/4 and Symmetrical, Motor Exam 5/5 strength throughout Microbiology Past 72 Hours 10/13/17 00:25 Urine, Clean Catch Legionella Antigen - Final 10/13/17 00:25 Urine, Clean Catch Streptococcus pneumoniae Antigen (M - Final Streptococcus pneumonia Ag Laboratory Results 10/12/17 18:10: Sodium 138, Potassium 3.5, Chloride 102, Carbon Dioxide 26.0, Anion Gap 10, BUN 5 L, Creatinine 0.46 L, Estim Creat Clear Calc 158.63, Est GFR (MDRD) Af Amer 209, Est GFR (MDRD) Non-Af 173, BUN/Creatinine Ratio 10.9, Glucose 96, Calcium 9.0 Current Medications Acetaminophen (Tylenol) 1,000 mg PO Q8H PRN PRN PRN Reason: MILD PAIN (-09/29) Hydrocodone Bitart/Acetaminophen ([place] 5mg-325mg) 1 - 2 tablet PO Q4H PRN PRN PRN Reason: PAIN Albuterol Sulfate (Ventolin Aerosols) 2.5 mg INHALATION Q2H PRN PRN PRN Reason: wheezing/SOB Last Admin: 10/12/17 13:35 Dose: 2.5 mg Albuterol Sulfate (Ventolin Aerosols) 2.5 mg INHALATION Q6HWA.RT JENNY Last Admin: 10/13/17 08:10 Dose: 2.5 mg Azithromycin (Zithromax) 250 mg PO DAILY JENNY Stop: 10/16/17 10:01 Last Admin: 10/12/17 09:50 Dose: 250 mg Bisacodyl (Dulcolax) 10 mg RECTAL UD PRN PRN Reason: If no BM Hydrocortisone (Hytone) 1 applic TOPICAL TID PRN PRN; Protocol PRN Reason: Discomfort Hydromorphone HCl (Dilaudid Iv) 0.5 - 1 mg IV Q2H PRN PRN PRN Reason: MOD-SEVERE (PAIN SCALE 6-10) Sodium Chloride () 250 mls @ 15 mls/hr IV .[id number] PRN PRN Reason: SALINE FLUSH Last Admin: 10/12/17 22:00 Dose: 15 mls/hr Ceftriaxone Sodium (Rocephin) 1 gm in 50 mls @ 100 mls/hr IV Q24 [facility] Ketorolac Tromethamine (Toradol) 30 mg IV Q6H PRN PRN PRN Reason: PAIN Stop: 10/15/17 21:10 Last Admin: 10/12/17 22:00 Dose: 30 mg Methylergonovine Maleate (Methergine) 0.2 mg IM X1 PRN PRN Reason: Bleeding Naproxen (Naprosyn) 250 - 500 mg PO Q8H PRN PRN PRN Reason: Mild Pain (1-3/10) Last Admin: 10/13/17 05:41 Dose: 500 mg Nutritional Formula (Lactose Free) (Ensure Enlive) 120 ml PO 4X/DAY [facility] Ondansetron HCl (Zofran) 4 mg IV Q4H PRN PRN PRN Reason: Nausea Pantoprazole Sodium (Protonix) 40 mg PO DAILY [facility] Prednisone () 40 mg PO DAILY@0800 [facility] Last Admin: 10/13/17 08:44 Dose: 40 mg Promethazine HCl (Phenergan Iv) 12.5 mg IV Q4H PRN PRN PRN Reason: NAUSEA/VOMITING Senna/Docusate Sodium (Senokot-S, Elin-Colace) 1 - 2 tablet PO DAILY PRN PRN Reason: Constipation Last Admin: 10/13/17 08:45 Dose: 2 tablet Simethicone (Mylicon) 80 mg PO PCHS PRN PRN Reason: Indigestion/stomach pain Last Admin: 10/13/17 05:56 Dose: 80 mg Sodium Chloride () 5 - 15 ml IV UD PRN PRN Reason: SALINE FLUSH Last Admin: 10/12/17 22:00 Dose: 10 ml Medical Necessity - Tobacco Use Smoking Status: Current every day smoker Assessment/Plan Active and Suspected Problems (Last Reviewed 10/10/17 @ 09:42 by Carlene Duff) heart rate decelerations affecting management of mother (Acute) IUGR (intrauterine growth restriction) (Acute) 1. Pneumococcal Pneumonia; will change antibiotics to IV Rocephin. 2. Acute asthmatic bronchitis; we will continue on Prednisone 40 mg daily, Advair and bronchodilators as ordered. 3. sinus Tachycardia; likely due to bronchodilator therapy , CTA chest is negative for PE. 4. Status post ; postoperative care by primary service. 5. Bilateral Atelectasis; incentive spirometry recommended. 6. Pneumoperitoneum seen on CT scan is 2/2 #4. 7. Prophylactic therapy; DVT ppx, early ambulation. GI ppx with a PPI.
[2017-10-13] MEDS: 0.9% Saline Lock 10 ML Syringe IV ×2 (09:42→10:58)
[2017-10-13] MEDS: Pantoprazole Sodium 40 MG Tablet PO (10:19)
[2017-10-13] MEDS: Ceftriaxone 1 GM/50 ML BAG IV (10:22)
[2017-10-13] MEDS: Budesonide Respules 0.5 MG/2 ML AMPUL.NEB. INHALATION (20:44)
--- NOTE | 2017-10-13 21:46 | NURSING ---
Pt walked in [place] to refreshment station and back to room. Resp easy, willow well.
[2017-10-14] VITALS (7 sets, daily range): BP systolic 94–96; BP diastolic 47–61; PULSE 66–80; RESP 16–18; TEMP 36.4–36.8; O2SAT 93–96
--- NOTE | 2017-10-14 07:09 | PN.OBGYN_ITS ---
Patient Problems: Active and Suspected Problems (Last Reviewed 10/10/17 @ 09:42 by Carlene Duff) heart rate decelerations affecting management of mother (Acute) IUGR (intrauterine growth restriction) (Acute) Subjective: doing much better, less CP and SOB cough lessening. pain controlled no n v - Physical Exam General: Alert, Oriented x3 HEENT: EOMI Lungs: Wheezes Abdomen: Soft, Non Tender, - - incision C/D/I Extremities: No edema Vital Signs Temp Pulse Resp BP Pulse Ox 98.2 F 80 16 96/47 L 94 10/14/17 04:00 10/14/17 04:00 10/14/17 04:00 10/14/17 04:00 10/14/17 04:00 Oxygen Flow Rate (L/min) 2 Oxygen Delivery Method Room Air Weight: 122 lb 9.232 oz Body Mass Index (BMI) 21.0 Intake and Output for Last 24 Hours 10/12/17 10/13/17 10/14/17 23:59 23:59 23:59 Output Total 450 / 450 Balance -450 / -450 Microbiology Past 72 Hours 10/12/17 22:30 Gram Stain - Final Sputum, Expectorated/Coughed Respiratory Culture - Preliminary Alpha Hemolytic Streptococcus 10/13/17 00:25 Legionella Antigen - Final Urine, Clean Catch 10/13/17 00:25 Streptococcus pneumoniae Antigen (M - Final Urine, Clean Catch Streptococcus pneumonia Ag Medical Necessity - Tobacco Use Smoking Status: Current every day smoker Assessment/Plan Active and Suspected Problems (Last Reviewed 10/10/17 @ 09:42 by Carlene Duff) heart rate decelerations affecting management of mother (Acute) IUGR (intrauterine growth restriction) (Acute) s/p LTCS secodnary to decels 1. pneumonia- appreciate hospitalist management, continue IV antibiotics and IS , albuterol, dc when cleared by hospitalist 2. asthmatic bronchiitis- management per hospitalist 3. post routine postop care
[2017-10-14] MEDS: Budesonide Respules 0.5 MG/2 ML AMPUL.NEB. INHALATION (08:04)
[2017-10-14] MEDS: Albuterol 2.5 MG/3 ML VIAL.NEB. INHALATION ×2 (08:04→13:35)
--- NOTE | 2017-10-14 08:27 | PCM.PN.HOSP ---
Patient Problems: Active and Suspected Problems (Last Reviewed 10/10/17 @ 09:42 by Carlene Duff) heart rate decelerations affecting management of mother (Acute) IUGR (intrauterine growth restriction) (Acute) Subjective: CC: Cough and shortness of breath Objective: Feels much improved , she has less cough and shortness of breath, she denies any fever or chills. No acute events reported overnight. Vitals/I&O's: Vital Signs Temp Pulse Resp BP Pulse Ox 98.2 F 80 16 96/47 L 94 10/14/17 04:00 10/14/17 04:00 10/14/17 04:00 10/14/17 04:00 10/14/17 04:00 Oxygen Flow Rate (L/min) 2 Oxygen Delivery Method Room Air Weight: 55.6 kg Body Mass Index (BMI) 21.0 Intake and Output for Last 24 Hours 10/12/17 10/13/17 10/14/17 23:59 23:59 23:59 Output Total 450 / 450 Balance -450 / -450 General: Alert, Oriented x3 HEENT: Atraumatic Oral: Moist Mucosa Neck: Supple Lungs: Clear to auscultation Cardiovascular: Regular rate, Normal S1 Abdomen: Bowel Sounds Present, Soft, Non Tender Extremities: No edema Neurological: Cranial nerves II-XII grossly intact, Motor Exam 5/5 strength throughout Microbiology Past 72 Hours 10/12/17 22:30 Sputum, Expectorated/Coughed Gram Stain - Final 10/12/17 22:30 Sputum, Expectorated/Coughed Respiratory Culture - Preliminary Alpha Hemolytic Streptococcus 10/13/17 00:25 Urine, Clean Catch Legionella Antigen - Final 10/13/17 00:25 Urine, Clean Catch Streptococcus pneumoniae Antigen (M - Final Streptococcus pneumonia Ag Current Medications Acetaminophen (Tylenol) 1,000 mg PO Q8H PRN PRN PRN Reason: MILD PAIN (1-3/10) Hydrocodone Bitart/Acetaminophen ([place] 5mg-325mg) 1 - 2 tablet PO Q4H PRN PRN PRN Reason: PAIN Albuterol Sulfate (Ventolin Aerosols) 2.5 mg INHALATION Q2H PRN PRN PRN Reason: wheezing/SOB Last Admin: 10/12/17 13:35 Dose: 2.5 mg Albuterol Sulfate (Ventolin Aerosols) 2.5 mg INHALATION Q6HWA.RT [facility] Last Admin: 10/14/17 08:04 Dose: 2.5 mg Bisacodyl (Dulcolax) 10 mg RECTAL UD PRN PRN Reason: If no BM Budesonide (Pulmicort Aerosol) 0.5 mg INHALATION Q12H.RT [facility] Last Admin: 10/14/17 08:04 Dose: 0.5 mg Hydrocortisone (Hytone) 1 applic TOPICAL TID PRN PRN; Protocol PRN Reason: Discomfort Hydromorphone HCl (Dilaudid Iv) 0.5 - 1 mg IV Q2H PRN PRN PRN Reason: MOD-SEVERE (PAIN SCALE 6-10) Sodium Chloride () 250 mls @ 15 mls/hr IV .[id number] PRN PRN Reason: SALINE FLUSH Last Admin: 10/12/17 22:00 Dose: 15 mls/hr Ceftriaxone Sodium (Rocephin) 1 gm in 50 mls @ 100 mls/hr IV Q24 [facility] Last Admin: 10/13/17 10:22 Dose: 100 mls/hr Ketorolac Tromethamine (Toradol) 30 mg IV Q6H PRN PRN PRN Reason: PAIN Stop: 10/15/17 21:10 Last Admin: 10/12/17 22:00 Dose: 30 mg Methylergonovine Maleate (Methergine) 0.2 mg IM X1 PRN PRN Reason: Bleeding Naproxen (Naprosyn) 250 - 500 mg PO Q8H PRN PRN PRN Reason: Mild Pain (1-3/10) Last Admin: 10/13/17 05:41 Dose: 500 mg Nutritional Formula (Lactose Free) (Ensure Enlive) 120 ml PO 4X/DAY [facility] Last Admin: 10/13/17 21:17 Dose: 120 ml Ondansetron HCl (Zofran) 4 mg IV Q4H PRN PRN PRN Reason: Nausea Pantoprazole Sodium (Protonix) 40 mg PO DAILY [facility] Last Admin: 10/13/17 10:19 Dose: 40 mg Prednisone () 40 mg PO DAILY@0800 [facility] Last Admin: 10/13/17 08:44 Dose: 40 mg Promethazine HCl (Phenergan Iv) 12.5 mg IV Q4H PRN PRN PRN Reason: NAUSEA/VOMITING Senna/Docusate Sodium (Senokot-S, Elin-Colace) 1 - 2 tablet PO DAILY PRN PRN Reason: Constipation Last Admin: 10/13/17 08:45 Dose: 2 tablet Simethicone (Mylicon) 80 mg PO PCHS PRN PRN Reason: Indigestion/stomach pain Last Admin: 10/13/17 09:45 Dose: 80 mg Sodium Chloride () 5 - 15 ml IV UD PRN PRN Reason: SALINE FLUSH Last Admin: 10/13/17 10:58 Dose: 10 ml Medical Necessity - Tobacco Use Smoking Status: Current every day smoker Assessment/Plan Active and Suspected Problems (Last Reviewed 10/10/17 @ 09:42 by Carlene Duff) heart rate decelerations affecting management of mother (Acute) IUGR (intrauterine growth restriction) (Acute) 1. Pneumococcal Pneumonia; change to p.o. Augmentin to complete 7-8 days of total antibiotic therapy. 2. Acute asthmatic bronchitis; we will continue on Prednisone 20 mg daily for 5 more days, Advair 1 puff twice daily. 3. sinus Tachycardia; likely due to bronchodilator therapy , CTA chest is negative for PE. 4. Status post ; postoperative care by primary service. 5. Bilateral Atelectasis; incentive spirometry recommended. 6. Pneumoperitoneum seen on CT scan is 2/2 #4. 7. Prophylactic therapy; DVT ppx, early ambulation. GI ppx with a PPI. OK to discharge home from medical standpoint. Code Visit Inpatient E&M: 22407 Subs Hosp L2
--- NOTE | 2017-10-14 08:31 | PN_ITS ---
Patient Problems: Active and Suspected Problems (Last Reviewed 10/10/17 @ 09:42 by Carlene Duff) heart rate decelerations affecting management of mother (Acute) IUGR (intrauterine growth restriction) (Acute) Subjective: CC: Cough and shortness of breath Objective: Feels much improved , she has less cough and shortness of breath, she denies any fever or chills. No acute events reported overnight. Vitals/I&O's: Vital Signs Temp Pulse Resp BP Pulse Ox 98.2 F 80 16 96/47 L 94 10/14/17 04:00 10/14/17 04:00 10/14/17 04:00 10/14/17 04:00 10/14/17 04:00 Oxygen Flow Rate (L/min) 2 Oxygen Delivery Method Room Air Weight: 55.6 kg Body Mass Index (BMI) 21.0 Intake and Output for Last 24 Hours 10/12/17 10/13/17 10/14/17 23:59 23:59 23:59 Output Total 450 / 450 Balance -450 / -450 General: Alert, Oriented x3 HEENT: Atraumatic Oral: Moist Mucosa Neck: Supple Lungs: Clear to auscultation Cardiovascular: Regular rate, Normal S1 Abdomen: Bowel Sounds Present, Soft, Non Tender Extremities: No edema Neurological: Cranial nerves II-XII grossly intact, Motor Exam 5/5 strength throughout Microbiology Past 72 Hours 10/12/17 22:30 Sputum, Expectorated/Coughed Gram Stain - Final 10/12/17 22:30 Sputum, Expectorated/Coughed Respiratory Culture - Preliminary Alpha Hemolytic Streptococcus 10/13/17 00:25 Urine, Clean Catch Legionella Antigen - Final 10/13/17 00:25 Urine, Clean Catch Streptococcus pneumoniae Antigen (M - Final Streptococcus pneumonia Ag Current Medications Acetaminophen (Tylenol) 1,000 mg PO Q8H PRN PRN PRN Reason: MILD PAIN (1-3/10) Hydrocodone Bitart/Acetaminophen ([place] 5mg-325mg) 1 - 2 tablet PO Q4H PRN PRN PRN Reason: PAIN Albuterol Sulfate (Ventolin Aerosols) 2.5 mg INHALATION Q2H PRN PRN PRN Reason: wheezing/SOB Last Admin: 10/12/17 13:35 Dose: 2.5 mg Albuterol Sulfate (Ventolin Aerosols) 2.5 mg INHALATION Q6HWA.RT [facility] Last Admin: 10/14/17 08:04 Dose: 2.5 mg Bisacodyl (Dulcolax) 10 mg RECTAL UD PRN PRN Reason: If no BM Budesonide (Pulmicort Aerosol) 0.5 mg INHALATION Q12H.RT [facility] Last Admin: 10/14/17 08:04 Dose: 0.5 mg Hydrocortisone (Hytone) 1 applic TOPICAL TID PRN PRN; Protocol PRN Reason: Discomfort Hydromorphone HCl (Dilaudid Iv) 0.5 - 1 mg IV Q2H PRN PRN PRN Reason: MOD-SEVERE (PAIN SCALE 6-10) Sodium Chloride () 250 mls @ 15 mls/hr IV .[id number] PRN PRN Reason: SALINE FLUSH Last Admin: 10/12/17 22:00 Dose: 15 mls/hr Ceftriaxone Sodium (Rocephin) 1 gm in 50 mls @ 100 mls/hr IV Q24 [facility] Last Admin: 10/13/17 10:22 Dose: 100 mls/hr Ketorolac Tromethamine (Toradol) 30 mg IV Q6H PRN PRN PRN Reason: PAIN Stop: 10/15/17 21:10 Last Admin: 10/12/17 22:00 Dose: 30 mg Methylergonovine Maleate (Methergine) 0.2 mg IM X1 PRN PRN Reason: Bleeding Naproxen (Naprosyn) 250 - 500 mg PO Q8H PRN PRN PRN Reason: Mild Pain (1-3/10) Last Admin: 10/13/17 05:41 Dose: 500 mg Nutritional Formula (Lactose Free) (Ensure Enlive) 120 ml PO 4X/DAY [facility] Last Admin: 10/13/17 21:17 Dose: 120 ml Ondansetron HCl (Zofran) 4 mg IV Q4H PRN PRN PRN Reason: Nausea Pantoprazole Sodium (Protonix) 40 mg PO DAILY [facility] Last Admin: 10/13/17 10:19 Dose: 40 mg Prednisone () 40 mg PO DAILY@0800 [facility] Last Admin: 10/13/17 08:44 Dose: 40 mg Promethazine HCl (Phenergan Iv) 12.5 mg IV Q4H PRN PRN PRN Reason: NAUSEA/VOMITING Senna/Docusate Sodium (Senokot-S, Elin-Colace) 1 - 2 tablet PO DAILY PRN PRN Reason: Constipation Last Admin: 10/13/17 08:45 Dose: 2 tablet Simethicone (Mylicon) 80 mg PO PCHS PRN PRN Reason: Indigestion/stomach pain Last Admin: 10/13/17 09:45 Dose: 80 mg Sodium Chloride () 5 - 15 ml IV UD PRN PRN Reason: SALINE FLUSH Last Admin: 10/13/17 10:58 Dose: 10 ml Medical Necessity - Tobacco Use Smoking Status: Current every day smoker Assessment/Plan Active and Suspected Problems (Last Reviewed 10/10/17 @ 09:42 by Carlene Duff) heart rate decelerations affecting management of mother (Acute) IUGR (intrauterine growth restriction) (Acute) 1. Pneumococcal Pneumonia; change to p.o. Augmentin to complete 7-8 days of total antibiotic therapy. 2. Acute asthmatic bronchitis; we will continue on Prednisone 20 mg daily for 5 more days, Advair 1 puff twice daily. 3. sinus Tachycardia; likely due to bronchodilator therapy , CTA chest is negative for PE. 4. Status post ; postoperative care by primary service. 5. Bilateral Atelectasis; incentive spirometry recommended. 6. Pneumoperitoneum seen on CT scan is 2/2 #4. 7. Prophylactic therapy; DVT ppx, early ambulation. GI ppx with a PPI. OK to discharge home from medical standpoint. Code Visit Inpatient E&M: 46725 Subs Hosp L2
[2017-10-14] MEDS: predniSONE 20 MG Tablet 40 MG PO (08:44)
[2017-10-14] MEDS: Amox/Clavulanate 875 MG Tablet PO (10:51)
[2017-10-14] MEDS: Pantoprazole Sodium 40 MG Tablet PO (10:51)
--- NOTE | 2017-10-14 12:48 | PCM.DC.SUM ---
Discharge Date and Diagnosis - Problem List Patient Problems: Active and Suspected Problems (Last Reviewed 10/10/17 @ 09:42 by Carlene Duff) heart rate decelerations affecting management of mother (Acute) IUGR (intrauterine growth restriction) (Acute) Date of Admission: 10/10/17 Date of Discharge: 10/14/17 - Primary Discharge Diagnosis Active and Suspected Problems (Last Reviewed 10/10/17 @ 09:42 by Carlene Duff) heart rate decelerations affecting management of mother (Acute) IUGR (intrauterine growth restriction) (Acute) acute bacterial community acquired pneumonia asthmatic exacerbation Hospital Course and Treatment Imaging Results: pneumonia with collapsed lung Consultations 10/10/17 12:17 Consult: Anesthesia Routine Comment: Reason For Exam: labor 10/10/17 12:31 Consult: Mental Health/Crisis Routine Reason for consult?: drug use in very little care Date Notified:: 10/10/17 Time notified:: 12:31 Operations: - - cs Summary of Care Provided: The patient is a 27 year old F presetns with limited care due to noncompliance, was found to be IAL with severe IUGR. she developed a tegory II tracing and underwent a primary low transver c section. She had some mild URI symptoms upon admission that progressively worsened and the hospitalist was consulted and she was found to have a CAP with an asthma exacerbation. this was terated with antibiotics and steroids and she was stable for dc to home. Discharge Diet: No Restrictions Discharge Activity: May Not Drive - for 2 weeks, May not drive while taking narcotic pain medications., May Shower, May Take a Tub Bath - in 7 days May resume sexual activity in: 4-6 weeks Additional Activity Instructions:: Nothing in the vagina for 4-6 weeks. You may return to work/school in 6 weeks. Call your doctor if your incision/area has: Continuous Slow Oozing, Sudden Increased Bleeding, Increased Pain/ Swelling, Increased Redness, Foul Smelling Discharge Call your doctor if you observe: Fever of 101 or Higher, Using more than one pad per hour - for 2 hours Suture Line Care: Avoid Pulling/Pushing, Avoid Pinching/Bending Cleanse incision/area with: Keep Dressing Clean & Dry Home Medications: Medications to take at Discharge Naproxen [Naprosyn] 250 - 500 mg PO Q8H PRN PRN #30 tab 10/11/17 Oxycodone HCl/Acetaminophen [Percocet 5-325] 2 tablet PO Q4H PRN PRN 7 Days #28 tablet 10/11/17 Amoxicillin/Potassium Clav [Augmentin 875-125 Tablet] 1 ea PO BID #10 tab 10/14/17 Ensure Enlive 120 ml PO BID #60 liquid 10/14/17 Fluticasone/Salmeterol [Advair 100/50 Diskus] 1 puff INHALATION BID #1 inhaler 10/14/17 Hydrocodone Bitart/Apap 5-325 [[place] 5/325] 1 - 2 tablet PO Q4H PRN PRN 7 Days #28 tablet 10/14/17 Naproxen [Naprosyn] 250 - 500 mg PO Q8H PRN PRN #60 tab 10/14/17 Prednisone 20 mg PO DAILY #5 tab 10/14/17 Following Prescrptions Were Given to Patient: Hydrocodone Bitart/Apap 5-325 [[place] 5/325] 1 - 2 tablet PO Q4H PRN PRN 7 Days #28 tablet PRN Reason: Pain Oxycodone HCl/Acetaminophen [Percocet 5-325] 2 tablet PO Q4H PRN PRN 7 Days #28 tablet PRN Reason: Moderate-Severe pain Naproxen [Naprosyn] 250 - 500 mg PO Q8H PRN PRN #30 tab PRN Reason: MILD PAIN Naproxen [Naprosyn] 250 - 500 mg PO Q8H PRN PRN #60 tab PRN Reason: Mild Pain (1-09/29) Prednisone 20 mg PO DAILY #5 tab Amoxicillin/Potassium Clav [Augmentin 875-125 Tablet] 1 ea PO BID #10 tab Ensure Enlive 120 ml PO BID #60 liquid Fluticasone/Salmeterol [Advair 100/50 Diskus] 1 puff INHALATION BID #1 inhaler Other Amb Orders: Electric breast pump Location: None Selected Primary Care Physician: Care Physician,No Primary [Primary Care Provider] - Please Follow Up With: Shanell Gagnon MD - Call to make an appointment for an incision check in 1-2 [phone] When: You will need a post- check in 6 weeks. Medical Necessity - Tobacco Use Smoking Status: Current every day smoker Meaningful Use Info Meaningful Use Diagnoses (Choose all that apply): None applicable
--- NOTE | 2017-10-14 12:51 | DS.PCM_ITS ---
Discharge Date and Diagnosis - Problem List Patient Problems: Active and Suspected Problems (Last Reviewed 10/10/17 @ 09:42 by Carlene Duff) heart rate decelerations affecting management of mother (Acute) IUGR (intrauterine growth restriction) (Acute) Date of Admission: 10/10/17 Date of Discharge: 10/14/17 - Primary Discharge Diagnosis Active and Suspected Problems (Last Reviewed 10/10/17 @ 09:42 by Carlene Duff) heart rate decelerations affecting management of mother (Acute) IUGR (intrauterine growth restriction) (Acute) acute bacterial community acquired pneumonia asthmatic exacerbation Hospital Course and Treatment Imaging Results: pneumonia with collapsed lung Consultations 10/10/17 12:17 Consult: Anesthesia Routine Comment: Reason For Exam: labor 10/10/17 12:31 Consult: Mental Health/Crisis Routine Reason for consult?: drug use in very little care Date Notified:: 10/10/17 Time notified:: 12:31 Operations: - - cs Summary of Care Provided: The patient is a 27 year old F presetns with limited care due to noncompliance, was found to be IAL with severe IUGR. she developed a tegory II tracing and underwent a primary low transver c section. She had some mild URI symptoms upon admission that progressively worsened and the hospitalist was consulted and she was found to have a CAP with an asthma exacerbation. this was terated with antibiotics and steroids and she was stable for dc to home. Discharge Diet: No Restrictions Discharge Activity: May Not Drive - for 2 weeks, May not drive while taking narcotic pain medications., May Shower, May Take a Tub Bath - in 7 days May resume sexual activity in: 4-6 weeks Additional Activity Instructions:: Nothing in the vagina for 4-6 weeks. You may return to work/school in 6 weeks. Call your doctor if your incision/area has: Continuous Slow Oozing, Sudden Increased Bleeding, Increased Pain/ Swelling, Increased Redness, Foul Smelling Discharge Call your doctor if you observe: Fever of 101 or Higher, Using more than one pad per hour - for 2 hours Suture Line Care: Avoid Pulling/Pushing, Avoid Pinching/Bending Cleanse incision/area with: Keep Dressing Clean & Dry Home Medications: Medications to take at Discharge Naproxen [Naprosyn] 250 - 500 mg PO Q8H PRN PRN #30 tab 10/11/17 Oxycodone HCl/Acetaminophen [Percocet 5-325] 2 tablet PO Q4H PRN PRN 7 Days #28 tablet 10/11/17 Amoxicillin/Potassium Clav [Augmentin 875-125 Tablet] 1 ea PO BID #10 tab Ensure Enlive 120 ml PO BID #60 liquid 10/14/17 Fluticasone/Salmeterol [Advair 100/50 Diskus] 1 puff INHALATION BID #1 inhaler 10/14/17 Hydrocodone Bitart/Apap 5-325 [[place] 5/325] 1 - 2 tablet PO Q4H PRN PRN 7 Days # 28 tablet 10/14/17 Naproxen [Naprosyn] 250 - 500 mg PO Q8H PRN PRN #60 tab 10/14/17 Prednisone 20 mg PO DAILY #5 tab 10/14/17 Following Prescrptions Were Given to Patient: Hydrocodone Bitart/Apap 5-325 [[place] 5/325] 1 - 2 tablet PO Q4H PRN PRN 7 Days # 28 tablet PRN Reason: Pain Oxycodone HCl/Acetaminophen [Percocet 5-325] 2 tablet PO Q4H PRN PRN 7 Days #28 tablet PRN Reason: Moderate-Severe pain Naproxen [Naprosyn] 250 - 500 mg PO Q8H PRN PRN #30 tab PRN Reason: MILD PAIN Naproxen [Naprosyn] 250 - 500 mg PO Q8H PRN PRN #60 tab PRN Reason: Mild Pain (1-09/29) Prednisone 20 mg PO DAILY #5 tab Amoxicillin/Potassium Clav [Augmentin 875-125 Tablet] 1 ea PO BID #10 tab Ensure Enlive 120 ml PO BID #60 liquid Fluticasone/Salmeterol [Advair 100/50 Diskus] 1 puff INHALATION BID #1 inhaler Other Amb Orders: Electric breast pump Location: None Selected Primary Care Physician: Care Physician,No Primary [Primary Care Provider] - Please Follow Up With: Shanell Gagnon MD - Call to make an appointment for an incision check in 1-2 [phone] When: You will need a post- check in 6 weeks. Medical Necessity - Tobacco Use Smoking Status: Current every day smoker Meaningful Use Info Meaningful Use Diagnoses (Choose all that apply): None applicable
== END 2017-10-14 15:00 | disposition home or self-care (01) | DRG 370 ==
PROVIDERS: Admitting Provider Obstetrics & Gynecology; Visit Provider Internal Medicine
DX: O76 Abnormality in fetal heart rate and rhythm complicating labor and delivery (principal); O99.324 Drug use complicating childbirth; J13 Pneumonia due to Streptococcus pneumoniae; I95.9 Hypotension, unspecified; O41.1430 Placentitis, third trimester, not applicable or unspecified; J45.901 Unspecified asthma with (acute) exacerbation; K66.8 Other specified disorders of peritoneum; J98.11 Atelectasis; O36.5930 Maternal care for other known or suspected poor fetal growth, third trimester, not applicable or unspecified; O99.513 Diseases of the respiratory system complicating pregnancy, third trimester; O99.333 Smoking (tobacco) complicating pregnancy, third trimester; F17.200 Nicotine dependence, unspecified, uncomplicated; F12.90 Cannabis use, unspecified, uncomplicated; O99.89 Other specified diseases and conditions complicating pregnancy, childbirth and the puerperium; R00.0 Tachycardia, unspecified; Z3A.38 38 weeks gestation of pregnancy; Z37.0 Single live birth; O09.33 Supervision of pregnancy with insufficient antenatal care, third trimester
CPT/HCPCS: 59025; 59050; 71045; 71275; 76815; 76816; 80048; 80307; 85018; 85025; 85027; 86592; 86703; 86762; 86850; 86900; 87070; 87077; 87081; 87186; 87205; 87340; 87449; 87491; 87591; 87653; 88307; 94640; 94667; 94668; 94762; 99218; J7030; J7050; J7120; Q9967; A4216; G0378; J2405

== ENCOUNTER → 2017-10-10 13:48 | Outpatient (CLI) | payer MEDICAID, SELFPAY ==
[2017-10-10 16:23] LABS: Chlamydia Trachomatis by PCR Negative (Negative); Neisserai gonorrhoeae by PCR Negative (Negative); Probe Check PASS; Sample Adequacy Control PASS; Specimen Processing Control PASS
[2017-10-16 16:10] LABS: Barbiturates Negative ng/mL (Cutoff=300); Cannabinoid Negative (Cutoff=50); Cannabinoid See Final Results ng/mL (Cutoff=50); Cocaine Negative ng/mL (Cutoff=300); Phencyclidine Negative ng/mL (Cutoff=25)
[2017-10-17 11:21] LABS: Amphetamines Negative ng/mL (Cutoff=1000); Opiates Negative ng/mL (Cutoff=300)
== END ==
PROVIDERS: Visit Provider Nurse Practitioner Women's Health
DX: O09.33 Supervision of pregnancy with insufficient antenatal care, third trimester (principal); O09.93 Supervision of high risk pregnancy, unspecified, third trimester; Z3A.00 Weeks of gestation of pregnancy not specified
CPT/HCPCS: 80307; 87491; 87591

== ENCOUNTER → 2017-10-10 14:49 | Outpatient (CLI) | payer MEDICAID, SELFPAY ==
[2017-10-10 15:54] LABS: Group B Strep DNA By PCR Negative (Negative); Internal Control PASS; Probe Check PASS; Specimen Processing Control PASS
== END ==
PROVIDERS: Visit Provider Nurse Practitioner Women's Health
DX: O09.93 Supervision of high risk pregnancy, unspecified, third trimester (principal); O09.33 Supervision of pregnancy with insufficient antenatal care, third trimester; Z3A.00 Weeks of gestation of pregnancy not specified
CPT/HCPCS: 76816; 80307; 85025; 86592; 86703; 86762; 86850; 86900; 87081; 87340; 87491; 87591; 87653

== ENCOUNTER 2018-02-17 21:42 | Emergency (ER) | payer MEDICAID, SELFPAY ==
[2018-02-17 21:43] VITALS: BP 117/68; PULSE 73; RESP 18; TEMP 36.7; O2SAT 100; BMI 21.4
--- NOTE | 2018-02-17 22:45 | ED.DCSUM_ITS ---
- ER Visit Summary Date of Service: 02/17/18 Chief Complaint: Abscess History of Present Illness: The patient is a 27 F presenting with abscess in her nose. This has been ongoing for the past 3 days. She has tried to apply pressure and has been able to have drain small amount of pus. She denies fever. Denies other complaints. Physical Examination: Vitals are stable. Patient is afebrile. Alert no acute distress. HEENT exam fluctuant abscess to the inside of the left nare. Neck is supple. Lungs are clear and equal bilaterally. Heart is regular rate and rhythm. Extremities are unremarkable. Skin is warm and dry. Remainder of exam is unremarkable. Emergency Department Course and Treatment: Attempted to I&D with 18-gauge needle. Patient pulled away and is unable to tolerate this. Small amount of pus was drained. She declines further attempts at I&D. She is given a prescription for Bactrim and Keflex. She is advised to follow up with ENT. Advised return to ED for worsening complaints. Disposition: Discharge home Impression: Abscess left nare This note was generated with [employer] dictation software. It may contain incorrect words, spelling, and punctuation that were not noted in review of the chart prior to signing ED Disposition - Plan for ED Patient: Chief Complaint: Abscess Referrals: Care Physician,No Primary [Primary Care Provider] -
--- NOTE | 2018-02-17 22:46 | ED.DEP ---
ED Disposition - Plan for ED Patient: Chief Complaint: Abscess Instructions: ED Abscess IandD Prescriptions: Cephalexin [Keflex] 500 mg PO Q6 #40 capsule Smz/Tmp Ds [Bactrim Ds] 1 tablet PO BID #14 tablet Referrals: Care Physician,No Primary [Primary Care Provider] - Anthony Felton MD [STAFF PHYSICIAN] -
[2018-02-17] MEDS: Cephalexin 250 MG Capsule 500 MG PO (22:52)
[2018-02-17] MEDS: Smz/Tmp Ds Tablet 1 TABLET PO (22:52)
== END 2018-02-17 22:54 | disposition home or self-care (01) ==
LOC: ED 22:14
PROVIDERS: Emergency Provider Emergency Medicine
DX: J34.0 Abscess, furuncle and carbuncle of nose (principal)
CPT/HCPCS: 30000; 99283

== ENCOUNTER 2018-12-30 14:58 | Emergency (ER) | payer MEDICAID, SELFPAY ==
[2018-12-30 14:58] VITALS: BP 118/75; PULSE 69; RESP 18; TEMP 36.4; O2SAT 100; BMI 16.8
--- NOTE | 2018-12-30 16:26 | ED.VISSUMM ---
- ER Visit Summary Date of Service: 12/30/18 Chief Complaint: Dental pain and left ear pain History of Present Illness: The patient is a 28 F who presents with left lower jaw pain and left ear pain that has been getting worse over the past 3 days. Patient states pain gradually has gotten worse. Patient describes her pain is sharp and throbbing. Patient states pain is over the left lower molar area and radiates to the left ear. Patient states her pain is worse with chewing and talking. Patient denies any hot or cold sensitivity. Patient denies any jaw swelling. Physical Examination: Vital signs are stable. Patient is afebrile. Patient is in no acute distress. Oral mucosa is pink and moist. There are multiple dental caries noted. There is gingival edema around the left lower molars. There is tenderness to percussion over these teeth. Oropharynx is clear. Neck is supple. Trachea is midline. There is no JVD noted. Heart was regular rate and rhythm. Lungs are clear and equal bilaterally. Emergency Department Course and Treatment: Patient was given a prescription for Pen-Vee K. Patient was instructed to continue Tylenol or Motrin as needed for pain. Patient was instructed to follow-up with her dentist in 5 to 7 days. Patient understood and was agreeable with the plan. All questions were answered. Disposition: Discharge home Impression: Infected dental caries This note was generated with [employer] dictation software. It may contain incorrect words, spelling, and punctuation that were not noted in review of the chart prior to signing ED Disposition - Plan for ED Patient: Disposition: Home or Assisted Living Diagnosis: Infected dental caries Instructions: ED Cavity Dental Prescriptions: Penicillin V Potassium 500 mg PO 4X/DAY #40 tab Referrals: Care Physician,No Primary [Primary Care Provider] - Additional Instructions: Follow-up with your dentist in 5 to 7 days
[2018-12-30 16:37] VITALS: PULSE 72; RESP 16; O2SAT 100
== END 2018-12-30 16:42 | disposition home or self-care (01) ==
PROVIDERS: Emergency Provider Emergency Medicine
DX: K02.9 Dental caries, unspecified (principal); K04.7 Periapical abscess without sinus; Z72.0 Tobacco use
CPT/HCPCS: 99282

== ENCOUNTER 2019-03-17 14:35 | Emergency (ER) | payer MEDICAID, SELFPAY ==
[2019-03-17 14:37] VITALS: BP 96/68; PULSE 87; RESP 16; TEMP 36.8; O2SAT 95; BMI 17.2
--- NOTE | 2019-03-17 14:52 | ED.DCSUM_ITS ---
History of Present Illness Chief Complaint: Upper Extremity Injury Informant: Patient Onset: Today, Days Context: Onset with activity Timing: Continuous Current Severity: Mild Maximum Severity: Mild Narrative: The patient presents to the emergency department with right wrist pain. She states is been going on for 2 weeks. She is right-hand dominant. 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 She noticed sometimes in the morning, she has tingling in her fingers. She denies any definitive trauma. She is otherwise been in her normal state of health. Prior similar symptoms: No Recent Illness/Hospitalization: Yes Past Medical History - Allergies and Home Meds Allergies/Adverse Reactions: Allergies No Known Allergies Allergy (Verified 03/17/19 14:37) Primary Care Physician: Raad Hyman DO [STAFF PHYSICIAN] - Prior records reviewed: Yes Past Medical History: None Smoking Status: Current every day smoker Alcohol: None Drugs: None Review of Systems General: Denies: Chills, Fever, Sweats Eyes: Denies: Visual changes - bilaterally, Diplopia ENT: Denies: Rhinorrhea, Sore throat Cardiovascular: Denies: Chest pain, Palpitations Respiratory: Denies: Dyspnea, Cough, Dyspnea on exertion Gastrointestinal: Denies: Abdominal pain, Nausea, Vomiting, Diarrhea, Melena, Hematochezia Genitourinary: Denies: Dysuria, Hematuria, Frequency Musculoskeletal: Denies: Back pain, Extremity Pain Skin: Denies: Rash, Wounds Neurological: Denies: Headache, Weakness, Numbness Physical Exam Vital Signs/Narrative: Vital Signs Temp Pulse Resp BP Pulse Ox 03/17/19 14:37 98.3 F 87 16 96/68 95 Inital Vital Signs reviewed: Yes General: Well nourished, Well developed, No Acute Distress Head: Normocephalic, Atraumatic Eyes: Perrl, EOMI ENT: Moist mucous membranes, No rhinorrhea Neck: Supple, Nontender Cardiovascular: Regular rate, Regular rhythm, No murmurs Respiratory: No distress, CTA bilaterally, Chest nontender Abdomen: Soft, Nontender, Nondistended, Normal bowel sounds Back: Nontender, Normal Inspection Extremities: Tenderness - Patient has 2+ pulses. Anterior interosseous, poste rior interosseous, ulnar nerve preserved. Positive recreation of symptoms with hyperflexion of the wrist. Skin: Normal color, No rash Neurological: Alert, Oriented x3, Cranial nerves II-XII grossly intact, Normal Strength, Normal Sensation Psychological: Normal affect, Normal Mood Diagnostic/Tx/Re-eval - Medical Decision Making The patient's examination is consistent with carpal tunnel. She had no trauma. Her pulses are normal. She will be started on conservative measures including anti-inflammatories and bracing. She will be given outpatient orthopedic follow-up. She is comfortable with this plan of care and will be discharged home. Impression 1. Carpal tunnel right wrist ED Disposition - Plan for ED Patient: Instructions: Carpal Tunnel Prescriptions: Naproxen [Naprosyn] 500 mg PO BID PRN #20 tab Prescription Printed Referrals: Raad Hyman DO [STAFF PHYSICIAN] -
== END 2019-03-17 15:16 | disposition home or self-care (01) ==
PROVIDERS: Emergency Provider Emergency Medicine
DX: G56.01 Carpal tunnel syndrome, right upper limb (principal); F17.200 Nicotine dependence, unspecified, uncomplicated
CPT/HCPCS: 99282

== ENCOUNTER 2019-05-26 23:23 | Emergency (ER) | payer MEDICAID, SELFPAY ==
[2019-05-26 23:24] VITALS: BP 104/68; PULSE 73; RESP 16; TEMP 36.2; O2SAT 99; BMI 20.7
--- NOTE | 2019-05-26 23:39 | ED.DCSUM_ITS ---
History of Present Illness Chief Complaint: Dental Narrative: This patient is a 28-year-old female who presents with facial swelling and pain. She does have a prior history of dental abscesses. For the past 1 day she has developed swelling on her left jaw with pain and radiation of the pain towards her ear. No fevers nausea vomiting. She does have a dentist in [place]. Past Medical History - Allergies and Home Meds Allergies/Adverse Reactions: Allergies No Known Allergies Allergy (Verified 05/26/19 23:26) Primary Care Physician: Care Physician,No Primary [Primary Care Provider] - Past Medical History: None Smoking Status: Current every day smoker Review of Systems All systems negative except as indicated General: Denies: Fever ENT: Reports: - - Dental pain, facial swelling Physical Exam Vital Signs/Narrative: Vital Signs Temp Pulse Resp BP Pulse Ox 05/26/19 23:24 97.1 F L 73 16 104/68 99 Inital Vital Signs reviewed: Yes General: Well nourished, Well developed Head: Normocephalic Eyes: EOMI ENT: Moist mucous membranes, - - Patient has widespread dental decay with severe decay of the left mandibular second premolar, first molar, second molar there is soft tissue swelling and induration over the jaw I do not appreciate focal fluctuance amenable to incision and drainage here in the emergency department Cardiovascular: Regular rate Respiratory: No distress Skin: Normal color Neurological: Alert Psychological: Normal affect Diagnostic/Tx/Re-eval - Medical Decision Making Patient does have findings consistent with a dental abscess although I do not feel a focal area of fluctuance amenable to incision and drainage from the emergency department. I advised that she follow-up with dentistry. She was given prescriptions for penicillin VK naproxen and short course of [place] for acute pain control. ED Disposition - Plan for ED Patient: Disposition: Home or Assisted Living Diagnosis: Dental abscess Instructions: Dental Abscess Prescriptions: Naproxen [Naprosyn] 500 mg PO BID #20 tab Prescription Printed Hydrocodone Bitart/Apap 5-325 [[place] 5MG-325MG] 1 tab PO Q6H PRN PRN 3 Days #10 tab PRN Reason: Pain Prescription Printed Penicillin V Potassium 500 mg PO 4X/DAY #40 tab Prescription Printed Referrals: Care Physician,No Primary [Primary Care Provider] -
[2019-05-26] MEDS: Naproxen 500 MG Tablet PO (23:55)
[2019-05-26] MEDS: Penicillin Vk 250 MG Tablet 500 MG PO (23:55)
[2019-05-26 23:56] VITALS: RESP 14
== END 2019-05-26 23:56 | disposition home or self-care (01) ==
LOC: ED 23:50
PROVIDERS: Emergency Provider Emergency Medicine
DX: K04.7 Periapical abscess without sinus (principal); K02.9 Dental caries, unspecified; F17.200 Nicotine dependence, unspecified, uncomplicated
CPT/HCPCS: 99283